=== PATIENT | male | born 1950 | race Caucasian/White ===

== ENCOUNTER 2018-05-02 13:06 | Inpatient (IN) ==
[2018-05-02] MEDS ORDERED: Haloperidol Inj 5 MG/ML Ampul IM ONE ×2 (14:40→15:03)
[2018-05-02] MEDS ORDERED: LORazepam 1 MG Tablet PO ONE (14:48)
--- NOTE | 2018-05-02 15:03 | ED ---
HPI General Chief Complaint: Psychiatric Symptoms Stated Complaint: Psych Eval Time Seen by Provider: 05/02/18 14:26 Source: patient and other (Uribe act report) Mode of arrival: ambulatory Limitations: no limitations History of Present Illness HPI Narrative: 68-year-old male presents the emergency department under Uribe act. Patient has history of chronic schizophrenia, bipolar disorder, and PTSD. According to the Uribe act report the patient is psychotic delusional agitated and is not taking his medications. He is hypertensive and diabetic as well and this noncompliance poses a danger to himself. Patient verbalized he will kill his psychiatrist because she lied to him. On my examination the patient is claiming that he is "Catarino King." When asked him if he is suicidal or homicidal he states "Catarino King is not kill anyone." He denies having any suicidal thoughts. He also states that "Catarino King does not hallucinate" when asked if he is having any auditory or visual hallucinations. He denies illicit drug use and alcohol use, stating "Catarino King does not do drugs or alcohol." Patient admits to tobacco use and states "Catarino King does smoke tobacco, and so does his father and his grandfather. "Patient denies any emergent medical complaints. He denies chest pain, shortness breath, abdominal pain, nausea, vomiting, change in urine or stool. The registered nurse who received the patient voiced concern of wounds to his feet and the patient is diabetic. Patient states he cut his right black 2 weeks ago and it got infected and he took antibiotics, but he is suing the snf for $ 10 million because they did not take care of his cut appropriately. Area of the right black has a small healed scab with some surrounding erythema and warmth to touch that could possibly could be consistent with cellulitis. I also noticed a callus to his left great toe with a small approximately 0.5 cm area of darkened tissue; there is no signs of infection and the toe is without erythema, edema, crepitance on palpation. Symptoms are moderate to severe in severity. Onset unknown. Duration most likely chronic. Possibly aggravated by not taking his medications. No known relieving factors. History of schizophrenia, PTSD, bipolar disorder. According to the medical record patient has history of diabetes, hypertension, kidney failure. Allergies to penicillin. Primary care provider is Dr. Torres. No other modifying factors or associated signs and symptoms. Related Data Home Medications Medication Instructions Recorded Confirmed aspirin [Aspir-81] 81 mg PO DAILY 04/17/18 05/02/18 aripiprazole 20 mg PO DAILY 05/02/18 05/02/18 balsalazide 750 mg PO TID 05/02/18 05/02/18 carvedilol 37.5 mg PO BID 05/02/18 05/02/18 glipizide 10 mg PO BID 05/02/18 05/02/18 insulin NPH isoph U-100 human 20 unit SUBCUT QPM 05/02/18 05/02/18 [Novolin N NPH U-100 Insulin] insulin NPH isoph U-100 human 50 unit SUBCUT QAM 05/02/18 05/02/18 [Novolin N NPH U-100 Insulin] lisinopril 20 mg PO DAILY 05/02/18 05/02/18 nifedipine 60 mg PO BID 05/02/18 05/02/18 terbinafine HCl 250 mg PO DAILY 05/02/18 05/02/18 Allergies Allergy/AdvReac Type Severity Reaction Status Date / Time Penicillins Allergy Anaphylaxis Verified 05/02/18 13:38 Review of Systems ROS: all other systems reviewed are negative [facility] Medical History Medical History Hypertension (Acute) Diabetes (Acute ~1988) Kidney failure (Acute ~2018) Surgical History Surgical History History of ankle surgery (Acute) Social History Social History Substance History: No History of Abuse Second Hand Smoke Exposure: Yes Smoking Status: Current every day smoker Tobacco Type: Cigarettes How Often Do You Have a Drink Containing Alcohol: 4 or more times a week Recent Travel in [place] within the Last 8 Weeks: No Recent Out of Country Travel within the Last 8 Weeks: No Immunization History Tetanus Immunization: Unsure Exam Narrative Exam Narrative: GENERAL: Well-nourished, well-developed male patient, in no acute distress SKIN: Warm and dry. Area of mild erythema and warmth to touch to the right black ; no fluctuance or crepitance; there is a small scabbed healed wound to the middle of the area; possibly consistent with cellulitis. Medial aspect of left great toe with callus with approximately a 0.5 cm area of darkened tissue; skin is intact; no drainage; the toe is without erythema, edema; toe is pink and warm and with good cap refill and sensory intact. I inspected both feet and in between all the toes and there are no open wounds noted. Bilateral lower extremities are supple and nontender with 2+ pedal pulses. HEAD: Atraumatic. Normocephalic. EYES: Pupils equal and round. ENT: Mucosa pink and moist. NECK: Supple. Trachea midline. CARDIOVASCULAR: Regular rate and rhythm. No murmur appreciated. RESPIRATORY: No accessory muscle use. Clear to auscultation. Breath sounds equal bilaterally. GASTROINTESTINAL: Rounded. MUSCULOSKELETAL: No obvious deformities. No clubbing. No cyanosis. No edema. NEUROLOGICAL: Awake and alert. No obvious cranial nerve deficits. Motor grossly within normal limits. Normal speech. Moves all extremities. 5/5 strength to all extremities. PSYCHIATRIC: delusional thought processes. Possible hallucinations. Patient aggravated and having spontaneous outbursts of yelling and being aggressive. Course Initial Documented Vital Signs Temperature 97.9 F 05/02/18 13:38 Pulse Rate 70 05/02/18 13:38 Respiratory Rate 20 05/02/18 13:38 Blood Pressure 154/71 H 05/02/18 13:38 Pulse Oximetry 99 05/02/18 13:38 Last Documented Vital Signs Temperature 97.4 F L 05/03/18 06:10 Pulse Rate 80 05/03/18 06:10 Respiratory Rate 17 05/03/18 06:10 Blood Pressure 127/64 05/03/18 06:10 Pulse Oximetry 98 05/03/18 06:10 Medical Decision Making [facility] Narrative Medical decision making narrative: Patient presents under a Uribe act. Physical examination and vital signs are essentially unremarkable. Patient has no medical complaints to report. Psych screen has been ordered. If the laboratory results are unremarkable, the patient will be medically cleared for psychiatric evaluation and disposition. There is concern of possible cellulitis to the right black, so I will treat the patient with Bactrim. The patient does have a callus to his left great toe with an area of darkening skin that is not open and there appears to be no signs of infection; the toe is pink and warm and with good cap refill. I ordered IM Ativan and Haldol as the patient is having intermittent episodes of yelling out. He is calm and cooperative at this time so I discontinued the IM injections and ordered Ativan by mouth. 1507: P.o. Ativan has not been administered at this time. Patient is having intermittent episodes of aggravation and yelling out loud that "someone is going to burn in hell." He walked out of his room and threw his glasses on the floor and broke them while I was standing in front of him. I discontinued Ativan p.o. and ordered Ativan IM and Haldol. Patient moved to J pod. BUN and creatinine is elevated and is consistent with past levels. Random glucose 47. Patient was eating wyatt crackers and was given Gatorade after blood draw. I called and spoke with the nurse in regards to the random glucose 47 and she has Loy rechecked the BGM; BGM recheck about 5 minutes ago 181. Medical Screen Exam Complete: Yes Emergency Medical Condition: Yes Differential Diagnosis Differential Diagnosis: Schizophrenia, bipolar disorder, hallucinations, PTSD, encounter for psychiatric assessment Lab Data Result diagrams: 05/02/18 13:53 05/02/18 13:53 Lab Results 05/02/18 05/02/18 05/02/18 Range/Units 13:53 13:53 13:53 WBC 11.0 (4.0-11.0) th/mm3 RBC 4.17 L (4.50-5.90) mil/mm3 Hgb 11.9 L (13.0-17.0) gm/dL Hct 36.3 L (39.0-51.0) % MCV 87.1 (80.0-100.0) fL MCH 28.7 (27.0-34.0) pg MCHC 32.9 (32.0-36.0) % RDW 15.3 (11.6-17.2) % Plt Count 286 (150-450) th/mm3 MPV 8.9 (7.0-11.0) fL Neut % (Auto) 73.2 H (16.0-70.0) % Lymph % (Auto) 16.1 (9.0-44.0) % [place] % (Auto) 7.3 (0.0-8.0) % Eos % (Auto) 2.9 (0.0-4.0) % Baso % (Auto) 0.5 (0.0-2.0) % Neut # (Auto) 8.0 H (1.8-7.7) th/mm3 Lymph # (Auto) 1.8 (1.0-4.8) th/mm3 [place] # (Auto) 0.8 (0.0-0.9) th/mm3 Eos # (Auto) 0.3 (0.0-0.4) th/mm3 Baso # (Auto) 0.1 (0.0-0.2) th/mm3 WBC Differential . Differential Comment Auto diff final Sodium 141 (136-145) meq/L Potassium 3.7 (3.5-5.1) meq/L Chloride 108 H (98-107) meq/L Carbon Dioxide 26.7 (21.0-32.0) meq/L Anion Gap 6 (5-15) meq/L BUN 35 H (7-18) mg/dL Creatinine 1.62 H (0.60-1.30) mg/dL Estimated GFR 42 L (>89) mL/min POC Glucose (68-110) mg/dl Random Glucose 47 L* (74-106) mg/dL Calcium 8.6 (8.5-10.1) mg/dL Magnesium 2.8 H (1.5-2.5) mg/dL Total Bilirubin 0.3 (0.2-1.0) mg/dL AST 26 (15-37) U/L ALT 26 (12-78) U/L Alkaline Phosphatase 83 (45-117) U/L Total Protein 7.7 (6.4-8.2) g/dL Albumin 3.3 L (3.4-5.0) g/dL TSH 0.501 (0.358-3.740) uIU/mL Salicylates 1.8 L (2.8-20.0) mg/dL Acetaminophen Less than 2.0 L (10.0-30.0) mcg/mL Serum Alcohol Less than 3 (0-5) mg/dL 05/02/18 05/03/18 Range/Units 16:49 05:16 WBC (4.0-11.0) th/mm3 RBC (4.50-5.90) mil/mm3 Hgb (13.0-17.0) gm/dL Hct (39.0-51.0) % MCV (80.0-100.0) fL MCH (27.0-34.0) pg MCHC (32.0-36.0) % RDW (11.6-17.2) % Plt Count (150-450) th/mm3 MPV (7.0-11.0) fL Neut % (Auto) (16.0-70.0) % Lymph % (Auto) (9.0-44.0) % [place] % (Auto) (0.0-8.0) % Eos % (Auto) (0.0-4.0) % Baso % (Auto) (0.0-2.0) % Neut # (Auto) (1.8-7.7) th/mm3 Lymph # (Auto) (1.0-4.8) th/mm3 [place] # (Auto) (0.0-0.9) th/mm3 Eos # (Auto) (0.0-0.4) th/mm3 Baso # (Auto) (0.0-0.2) th/mm3 WBC Differential Differential Comment Sodium (136-145) meq/L Potassium (3.5-5.1) meq/L Chloride (98-107) meq/L Carbon Dioxide (21.0-32.0) meq/L Anion Gap (5-15) meq/L BUN (7-18) mg/dL Creatinine (0.60-1.30) mg/dL Estimated GFR (>89) mL/min POC Glucose 181 H 98 (68-110) mg/dl Random Glucose (74-106) mg/dL Calcium (8.5-10.1) mg/dL Magnesium (1.5-2.5) mg/dL Total Bilirubin (0.2-1.0) mg/dL AST (15-37) U/L ALT (12-78) U/L Alkaline Phosphatase (45-117) U/L Total Protein (6.4-8.2) g/dL Albumin (3.4-5.0) g/dL TSH (0.358-3.740) uIU/mL Salicylates (2.8-20.0) mg/dL Acetaminophen (10.0-30.0) mcg/mL Serum Alcohol (0-5) mg/dL Discharge Plan Discharge Disposition Patient Disposition: Sign Out(ED Internal Use Only) Discharge Condition Condition: Stable Discharge Order Discharge Orders: ED Use Only Admit Order (Routine); Ordered 05/02/18 Ordered By: Aftab Joshua Discharge Details Diagnosis: Encounter for psychiatric assessment Physicians Team ED Provider: Jeff Matta ED Midlevel Provider: Amita Stewart Primary Care Provider: [facility],Physician 's Attending Provider: Mark Isidro Other Providers: Neftaly Clement ; Serafin Villarreal Status ED Status: Left Department Discharge Information Discharge Date/Time: 05/02/18 19:16
[2018-05-02 15:33] LABS: Baso # (Auto) 0.1 th/mm3 (0.0-0.2); Baso % (Auto) 0.5 % (0.0-2.0); Eos # (Auto) 0.3 th/mm3 (0.0-0.4); Eos % (Auto) 2.9 % (0.0-4.0); Hematocrit 36.3 % (39.0-51.0); Hemoglobin 11.9 gm/dL (13.0-17.0); Lymph # (Auto) 1.8 th/mm3 (1.0-4.8); Lymph % (Auto) 16.1 % (9.0-44.0); Mean Corpuscular HGB Conc 32.9 % (32.0-36.0); Mean Corpuscular Hemoglobin 28.7 pg (27.0-34.0); Mean Corpuscular Volume 87.1 fL (80.0-100.0); Mean Platelet Volume 8.9 fL (7.0-11.0); Mono # (Auto) 0.8 th/mm3 (0.0-0.9); Mono % (Auto) 7.3 % (0.0-8.0); Neut % (Auto) 73.2 % (16.0-70.0); Platelet Count 286 th/mm3 (150-450); Red Blood Count 4.17 mil/mm3 (4.50-5.90); Red Cell Distribution Width 15.3 % (11.6-17.2)
[2018-05-02] MEDS ORDERED: Bisacodyl 10 MG Supp RECTAL PRN (15:37)
[2018-05-02] MEDS ORDERED: Chlorpromazine Inj 50 MG/2 ML Ampule IM ONE (15:37)
[2018-05-02] MEDS ORDERED: Aluminum/Magnesium/Simethacone Susp 30 ML UDC PO PRN (15:37)
--- NOTE | 2018-05-02 15:42 | P.HPPSY ---
Provisional Diagnosis Admission Date: May 02, 2018 13:06 [place] I.: Schizophrenia Competence Certification of Person's Competence To Provide Express and Informed Consent I have personally examined Sourav Alvarado, a person being served at [facility] on, May 02, 2018 1542. Express and informed consent means consent voluntarily given in writing, by a competent person, after sufficient explanation and disclosure of the subject matter involved to enable the person to make a knowing and willful decision without any element of force, fraud, deceit, duress, or other form of constraint or coercion. This person is 18 years of age or older, is not now known to be incompetent to consent to treatment with a guardian advocate, and does not have a health care surrogate or proxy currently making medical treatment decisions. I have found this person to be one of the following: [] Competent to provide express and informed consent, as defined above, for voluntary admission to this facility and is competent to provide express and informed consent for treatment. He/she has the consistent capacity to make well reasoned, willful, and knowing decisions concerning his or her medical or mental health treatment. The person fully and consistently understands the purpose of the admission for examination/placement and is fully capable of personally exercising all rights [place] [x] Incompetent to provide express and informed consent to voluntary admission, and this is incompetent to provide express and informed consent to treatment. The person must be transferred to involuntary status and a petition for a guardian advocate filed with the Circuit Court. [] Refusing to provide express and informed consent to voluntary admission but is competent to provide express and informed consent for treatment. The person must be discharged or transferred to involuntary status. Form shall be completed within 24 hours of a person's arrival at the receiving facility and filed in the clinical record of each person: 1. Admitted on a voluntary basis 2. Permitted to provide express and informed consent to his/her own treatment 3. Allowed to transfer from involuntary to voluntary status 4. Prior to permitting a person to consent to his or her own treatment after having been previously found incompetent to consent to treatment. History of Present Illness Capacity: Has capacity History of Present Illness: The patient is a 68-year-old [place] man, domiciled in [place], single, supported by Social Security, with a psychiatric history of schizophrenia, PTSD , multiple psychiatric hospitalizations, he denies previous suicidal attempts, he denies been taking psychotropics, history of violence, incarcerations, sex offender, medical history diabetes, hypertension, who presents the emergency department under Uribe act. According to the Uribe act report the patient is psychotic delusional agitated and is not taking his medications. He is hypertensive and diabetic as well and this noncompliance poses a danger to himself. Patient verbalized he will kill his psychiatrist because she lied to him. On my psychiatric evaluation today the patient presents quite agitated, verbally hostile, refusing to cooperate. Patient does not engage in a conversation, continues to be threatening verbally. Patient is claiming that he is "Catarino King." When asked him if he is suicidal or homicidal he states "Catarino King is not kill anyone." He denies having any suicidal thoughts. He also states that "Catarino King does not hallucinate" when asked if he is having any auditory or visual hallucinations. The patient is start making accusation towards the staff, telling me that "you are Sourav Ugarte and you know exactly why I am here MF!!". The patient has some point become physically aggressive, he had to be manually restrained, medicated with Haldol 5 mg and Ativan 2 mg. He is secluded in the J pod, about 25 minutes later the patient continues to be coursing the staff, voicing profanities, threatening the staff and other patients and we had remedicated him Thorazine 100 mg IM to help him to calm down. PPHx: with a psychiatric history of schizophrenia, PTSD, multiple psychiatric hospitalizations, he denies previous suicidal attempts, he denies been taking psychotropics, history of violence, incarcerations, sex offender PMHx: Hypertension, diabetes Substance Hx: He denies the use of illegal drugs or alcohol Family Hx: No family psychiatric Social Hx: 68-year-old [place] man, born and raised in [place], he lives with his mother in [place], single, supported by Social Security, history of incarceration for sexual offense. Review of Systems All other systems reviewed negative except as stated in HPI Psychiatric: Reports behavioral changes, Reports irritability, Reports mood swings, Reports paranoia, Reports thoughts of hurting/killing others PMFSH - History History Provided By: Patient - Medical History Medical History: Medical History (Last Reviewed 05/02/18 @ 15:29 by RADHA Aly) Hypertension Diabetes Onset Date: ~1988 Kidney failure Onset Date: ~2018 - Surgical History Surgical History: Surgical History (Last Updated 05/02/18 @ 13:40 by Yessi Coffey) History of ankle surgery - Tobacco History Second Hand Smoke Exposure: Yes Tobacco Use In Past 30 Days: Yes (2PPD) Smoking Status: Current every day smoker Tobacco Type: Cigarettes - Alcohol History How Often Do You Have a Drink Containing Alcohol: 4 or more times a week - Substance Use History Substance History: No History of Abuse - Travel History Recent Travel in the [place] Within the Last 8 Weeks: No Recent Travel Out of the Country Within the Last 8 Weeks: No - Immunization History Tetanus Immunization: Unsure Medications and Allergies Active Medications: Active Medications Al Hydrox/Mg Hydrox/Simethicone (Mag-Al Plus Susp Liq) 30 ml PO Q6H PRN PRN Reason: DYSPEPSIA Al Hydroxide/Mg Hydroxide (Milk Of Magnesia Liq) 30 ml PO Q12H PRN PRN Reason: Mild Constipation Bisacodyl (Dulcolax Supp) 10 mg RECTAL DAILY PRN PRN Reason: SEVERE CONSITIPATION Chlorpromazine HCl (Thorazine Inj) 100 mg IM ONCE ONE Stop: 05/02/18 15:38 Lactulose (Lactulose Liq) 30 ml PO DAILY PRN PRN Reason: SEVERE CONSITIPATION Senna/Docusate Sodium (Ani-Colace) 1 tab PO BID NOLVIA Sennosides (Senokot) 17.2 mg PO Q12H PRN PRN Reason: Moderate Constipation Trimethoprim/Sulfamethoxazole (Bactrim Ds) 1 tab PO Q12HR [facility] Allergies Allergy/AdvReac Type Severity Reaction Status Date / Time Penicillins Allergy Anaphylaxis Verified 05/02/18 13:38 Home Medications Medication Instructions Recorded Confirmed Type aspirin [Aspir-81] 81 mg PO DAILY 04/17/18 05/02/18 History aripiprazole 20 mg PO DAILY 05/02/18 05/02/18 History balsalazide 750 mg PO TID 05/02/18 05/02/18 History carvedilol 37.5 mg PO BID 05/02/18 05/02/18 History glipizide 10 mg PO BID 05/02/18 05/02/18 History insulin NPH isoph U-100 human 20 unit SUBCUT QPM 05/02/18 05/02/18 History [Novolin N NPH U-100 Insulin] insulin NPH isoph U-100 human 50 unit SUBCUT QAM 05/02/18 05/02/18 History [Novolin N NPH U-100 Insulin] lisinopril 20 mg PO DAILY 05/02/18 05/02/18 History nifedipine 60 mg PO BID 05/02/18 05/02/18 History terbinafine HCl 250 mg PO DAILY 05/02/18 05/02/18 History Results - Labs CBC & Chem 7: 05/02/18 13:53 05/02/18 13:53 Labs: Laboratory Results - last 24 hr 05/02/18 13:53 WBC 11.0 RBC 4.17 L Hgb 11.9 L Hct 36.3 L MCV 87.1 MCH 28.7 MCHC 32.9 RDW 15.3 Plt Count 286 MPV 8.9 Neut % (Auto) 73.2 H Lymph % (Auto) 16.1 [place] % (Auto) 7.3 Eos % (Auto) 2.9 Baso % (Auto) 0.5 Neut # (Auto) 8.0 H Lymph # (Auto) 1.8 [place] # (Auto) 0.8 Eos # (Auto) 0.3 Baso # (Auto) 0.1 WBC Differential . Differential Comment Auto diff final Exam Vital signs: Vital Signs 05/02/18 13:38 Temperature 97.9 F Pulse Rate 70 Respiratory Rate 20 Blood Pressure 154/71 H Pulse Oximetry 99 Intake & Output 05/01/18 05/02/18 05/02/18 18:59 06:59 18:59 Weight 90.718 kg Narrative: Agitated, restless, - Constitutional severe distress - Routine HEENT Exam Head: Present: normocephalic, atraumatic Eye: Present: EOMI, PERRL ENT: Present: mucous membranes moist Mental Status Examination Appearance: Dirty, Disheveled Consciousness: Alert Orientation: x4 Motor Activity: Normal gait Speech: Unremarkable Language: Adequate Fund of Knowledge: Adequate Attention and Concentration: Adequate Memory: Unremarkable Mood: Angry, Irritable Affect: Irritable Thought Process & Associations: Disorganized, Tangential Thought Content: Bizarre thinking, Hallucinations, Preoccupations, Delusional Hallucination Type: None Delusion Type: Bizarre, Paranoid Suicidal Ideation: No Suicidal Plan: No Suicidal Intention: No Homicidal Ideation: No Homicidal Plan: No Homicidal Intention: No Insight: Poor Judgment: Poor Assessment and Plan - Assessment (1) Schizophrenia Code(s): F20.9 - Schizophrenia, unspecified Status: Acute - Plan Plan: On my psychiatric evaluation today the patient presents agitated, verbally and physically aggressive, very difficult to redirect, the patient is very disorganized, acutely psychotic, very paranoid, making accusations toward staff and other patients. Patient does not follow verbal redirections. He has a psychiatric history of schizophrenia, violence, noncompliant with medications. Given his level of agitation and aggressiveness and psychosis, the patient had to be medicated with Haldol 5 mg IM, Ativan 2 mg IM and finally with Thorazine 100 mg IM in order to calm him down. Patient will be admitted to psychiatry for stabilization and safety. Collateral information is crucial to complete psychiatric assessment. I am starting Haldol 5 mg twice daily, Cogentin 1 mg twice daily for psychosis. Patient should be on assault precautions. Transfer to 2700 unit. Justification for Continued Inpatient Stay: To be admitted in psychiatry
[2018-05-02 16:42] LABS: Alanine Aminotransferase 26 U/L (12-78); Albumin 3.3 g/dL (3.4-5.0); Alkaline Phosphatase 83 U/L (45-117); Anion Gap 6 meq/L (5-15); Aspartate Aminotransferase 26 U/L (15-37); Blood Urea Nitrogen 35 mg/dL (7-18); Calcium 8.6 mg/dL (8.5-10.1); Carbon Dioxide 26.7 meq/L (21.0-32.0); Chloride 108 meq/L (98-107); Glomerular Filtration Rate 42 mL/min (>89); Magnesium 2.8 mg/dL (1.5-2.5); Potassium 3.7 meq/L (3.5-5.1); Sodium 141 meq/L (136-145); Thyroid Stimulating Hormone 0.501 uIU/mL (0.358-3.740); Total Protein 7.7 g/dL (6.4-8.2)
[2018-05-02 16:46] LABS: Glucose,Random 47 mg/dL (74-106)
[2018-05-02] MEDS: Senna/Docusate Sodium 8.6/50 MG Tablet PO SCH (21:00)
[2018-05-03] MEDS ORDERED: Haloperidol Inj 5 MG/ML Ampul IM SCH (06:00)
[2018-05-03] MEDS ORDERED: Haloperidol Inj 5 MG/ML Ampul ONE ×2 (06:28→16:19)
[2018-05-03] MEDS: Senna/Docusate Sodium 8.6/50 MG Tablet PO SCH ×2 (12:26→22:32)
--- NOTE | 2018-05-03 15:16 | P.PNPSY ---
Subjective Remarks: Patient was seen and case discussed with nursing. Patient is a very sexually inappropriate and intrusive with the female nurses and the patient is here. He remains acutely psychotic and says he is going to fly his airplane from [place] to the and will refuel in the air. He appears carefree and childlike. Responding to internal stimuli Review of Systems All other systems reviewed negative except as stated in HPI Mental Status Examination Appearance: Dirty, Disheveled Consciousness: Alert Orientation: x4 Motor Activity: Normal gait Speech: Unremarkable Language: Adequate Fund of Knowledge: Adequate Attention and Concentration: Adequate Memory: Unremarkable Mood: Angry, Irritable Affect: Labile Thought Process & Associations: Disorganized, Tangential Thought Content: Bizarre thinking, Hallucinations, Preoccupations, Delusional Hallucination Type: None Delusion Type: Bizarre, Paranoid Suicidal Ideation: No Suicidal Plan: No Suicidal Intention: No Homicidal Ideation: No Homicidal Plan: No Homicidal Intention: No Insight: Poor Judgment: Poor Assessment and Plan - Assessment (1) Schizophrenia Code(s): F20.9 - Schizophrenia, unspecified Status: Acute - Plan Plan: Given his behavior and 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
--- NOTE | 2018-05-03 17:02 | P.CONIM ---
History of Present Illness Primary Care Provider: [facility] History of Present Illness: 68-year-old male with history of schizophrenia who has a somewhat spotty history due to his current psychotic state. Been consulted regarding his labile blood sugars, patient presented to the hospital with a blood sugar of 48 and then had a sugar as high as 181 today. The hypoglycemia on presentation to the ER patient reports was due to the fact that he was going on a fast, copying his Lord Catarino King who fasted for 40 days, he was intending on fasting for 100. He has a history of diabetes, fortunately was not taking glipizide. In addition to fasting he was walking 1000 miles, though the exageration of his numbers in general are questionable. Review of Systems ROS Unobtainable: unobtainable due to mental condition [facility] Medical History Medical History Hypertension (Acute) Diabetes (Acute ~1988) Kidney failure (Acute ~2018) Surgical History Surgical History History of ankle surgery (Acute) Social History Social History Substance History: No History of Abuse Second Hand Smoke Exposure: Yes Smoking Status: Current every day smoker Tobacco Type: Cigarettes How Often Do You Have a Drink Containing Alcohol: 4 or more times a week Recent Travel in [facility] within the Last 8 Weeks: No Recent Out of Country Travel within the Last 8 Weeks: No Immunization History Tetanus Immunization: Unsure Medications and Allergies Allergies Allergy/AdvReac Type Severity Reaction Status Date / Time Penicillins Allergy Anaphylaxis Verified 05/02/18 13:38 Home Medications Medication Instructions Recorded Confirmed Type aspirin [Aspir-81] 81 mg PO DAILY 04/17/18 05/02/18 History aripiprazole 20 mg PO DAILY 05/02/18 05/02/18 History balsalazide 750 mg PO TID 05/02/18 05/02/18 History carvedilol 37.5 mg PO BID 05/02/18 05/02/18 History glipizide 10 mg PO BID 05/02/18 05/02/18 History insulin NPH isoph U-100 human 20 unit SUBCUT QPM 05/02/18 05/02/18 History [Novolin N NPH U-100 Insulin] insulin NPH isoph U-100 human 50 unit SUBCUT QAM 05/02/18 05/02/18 History [Novolin N NPH U-100 Insulin] lisinopril 20 mg PO DAILY 05/02/18 05/02/18 History nifedipine 60 mg PO BID 05/02/18 05/02/18 History terbinafine HCl 250 mg PO DAILY 05/02/18 05/02/18 History Active Medications: Active Medications Al Hydrox/Mg Hydrox/Simethicone (Mag-Al Plus Susp Liq) 30 ml PO Q6H PRN PRN Reason: DYSPEPSIA Al Hydroxide/Mg Hydroxide (Milk Of Magnesia Liq) 30 ml PO Q12H PRN PRN Reason: Mild Constipation Bisacodyl (Dulcolax Supp) 10 mg RECTAL DAILY PRN PRN Reason: SEVERE CONSITIPATION Lactulose (Lactulose Liq) 30 ml PO DAILY PRN PRN Reason: SEVERE CONSITIPATION Senna/Docusate Sodium (Ani-Colace) 1 tab PO BID [facility] Last Admin: 05/03/18 12:26 Dose: 1 tab Sennosides (Senokot) 17.2 mg PO Q12H PRN PRN Reason: Moderate Constipation Trimethoprim/Sulfamethoxazole (Bactrim Ds) 1 tab PO Q12HR [facility] Last Admin: 05/03/18 12:26 Dose: 1 tab Physical Exam Vital signs: Vital Signs 05/02/18 18:57 05/03/18 06:10 Temperature 97.4 F L Pulse Rate 79 80 Respiratory Rate 18 17 Blood Pressure 157/73 H 127/64 Pulse Oximetry 98 Intake & Output 05/02/18 05/03/18 05/03/18 18:59 06:59 18:59 Weight 90.718 kg 90.7 kg Other: Weight On Admission 90.7 kg Narrative: GENERAL: AAOx1, no acute distress, adequate nutrition SKIN: Warm and dry, no rashes. HEAD: Atraumatic. Normocephalic. EYES: Pupils equal, round, reactive to light. No scleral icterus. No injection or drainage. ENT: No nasal bleeding or discharge. Moist mucous membranes. Nonerythematous oropharynx. NECK: Trachea midline. No JVD. Thyroid size within normal limits. CARDIOVASCULAR: Regular rate and rhythm. RESPIRATORY: No congestion, lungs are clear GASTROINTESTINAL: Abdomen soft, non-tender, nondistended MUSCULOSKELETAL: Extremities without clubbing or cyanosis. No obvious deformities. No edema. NEUROLOGICAL: Awake and alert. No obvious cranial nerve deficits. Motor grossly within normal limits. No focal deficits. Five out of 5 muscle strength in the arms and legs. Normal speech. PSYCHIATRIC: Tangential psychosis, delusions of grandeur Results Labs CBC & Chem 7: 05/02/18 13:53 05/02/18 13:53 Assessment and Plan (1) Schizophrenia: Code(s): F20.9 - Schizophrenia, unspecified Status: Acute Plan Labile blood sugars Patient had hypoglycemia on admission due to fasting combined with walking long distances After he began to eat again his blood sugar went hyperglycemic, up to 181 Blood sugar then dropped to 98, which is a normal blood sugar At this point the larger threat is hypoglycemia, continue with regular Accu- Cheks for monitoring Okay to tolerate hyperglycemia into the 200s short-term If hyperglycemia persists, add metformin p.o. If metformin p.o. is unable to control hyperglycemia, then it had insulin sliding scale Psychosis Patient is admitted to psychiatry with psychotic break, delusions of grandeur Ongoing care per psychiatry Disposition We will continue to follow this patient monitor blood sugars alongside psychiatry. _ (1) Schizophrenia Qualifiers: Schizophrenia type:
[2018-05-03] MEDS ORDERED: Haloperidol Inj 5 MG/ML Ampul IM ONE (17:15)
[2018-05-04] MEDS: Senna/Docusate Sodium 8.6/50 MG Tablet PO SCH ×2 (08:31→20:08)
[2018-05-04 11:23] LABS: Calcium 8.4 mg/dL (8.5-10.1); Chol/HDL Ratio 3.72 Ratio; Potassium 4.5 meq/L (3.5-5.1)
[2018-05-04] MEDS ORDERED: Dextrose 50% in Water 50 ML Vial IV.PUSH PRN (11:45)
[2018-05-04 12:14] LABS: Hemoglobin A1c 8.9 % (4.3-6.0)
[2018-05-04] MEDS: Insulin NovoLOG Aspart Correctional Sugar Inj SQ SCH ×3 (12:14→20:10)
--- NOTE | 2018-05-04 14:54 | P.PNIM ---
Subjective Interval history: Follow-up for hypoglycemia. Patient is seen with sitter at bedside. Patient reports polyuria, but denies dysuria. No fevers or chills. Denies any chest pain or shortness of breath. Discussed with RN, blood sugar significantly elevated earlier today, improving with insulin. Patient reports he takes insulin twice a day at home. He is tolerating oral intake. RN reports patient did eat breakfast and lunch today. Physical Exam Narrative: GENERAL: Well-nourished, well-developed patient in NAD. Standing at bedside with no pants on. Sitter present. SKIN: Warm and dry. No rash. HEENT: Normocephalic. Atraumatic. Pupils equal and round. Mucous membranes pink and moist. CARDIOVASCULAR: Regular rate and rhythm. No murmur appreciated. RESPIRATORY: No accessory muscle use. Clear to auscultation. Breath sounds equal bilaterally. GASTROINTESTINAL: Abdomen soft, non-tender, nondistended. Normoactive bowel sounds x4. MUSCULOSKELETAL: No obvious deformities. Extremities without clubbing, cyanosis , or edema. NEUROLOGICAL: Awake and alert. No obvious cranial nerve deficits. Motor grossly within normal limits. Moving all extremities spontaneously. Normal speech. PSYCHIATRIC: Tangential speech Results Labs CBC & Chem 7: 05/02/18 13:53 05/04/18 10:25 Assessment and Plan (1) Schizophrenia: Code(s): F20.9 - Schizophrenia, unspecified Status: Acute Plan 68-year-old male history of HTN, DM, CKD, schizophrenia, admitted to inpatient psychiatry. Hospitalist consulted for medical management of hypoglycemia. Psychosis/Schizophrenia: acute -continue management per psychiatry Diabetes mellitus: With hypoglycemia, now hyperglycemia. Patient likely initially hypoglycemic due to fasting while acutely psychotic. Now patient is eating, and blood sugar 400. -holding patient's glipizide for now -Monitor Accu-Cheks and started on low-dose SSI for now -Unable to start metformin secondary to renal function -Difficult to control as patient intermittently fasting -Will monitor BG over the next 24 hours to see how much insulin the patient is requiring -If BG still uncontrolled and patient eating, consider restarting his long- acting insulin NPH 50u in am, 20u in pm Hypertension: chronic -continue patient's coreg and nifedipine with hold parameters -hold patient's lisinopril due to renal function -Monitor BP, adjust antihypertensives as needed CKD, stage III: chronic -avoid nephrotoxins -holding patient's lisinopril -Monitor BMP DVT Prophylaxis: patient is ambulatory Discharge Planning: Will continue to monitor blood glucose and adjust insulin as needed. Progress Note: Quality VTE Deep Vein Thrombosis/Pulmonary Embolism Present on Admission: No _ (1) Schizophrenia Qualifiers: Schizophrenia type:
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
[2018-05-04] MEDS: Carvedilol 12.5 MG Tablet PO SCH (20:08)
[2018-05-05] MEDS: Insulin NovoLOG Aspart Correctional Sugar Inj SQ SCH ×4 (08:35→20:08)
[2018-05-05] MEDS: Carvedilol 12.5 MG Tablet PO SCH ×2 (08:38→20:53)
[2018-05-05] MEDS: Senna/Docusate Sodium 8.6/50 MG Tablet PO SCH ×2 (08:40→20:53)
[2018-05-05] MEDS: Haloperidol 5 MG Tablet PO SCH ×2 (11:53→20:53)
[2018-05-05] MEDS: ARIPiprazole 10 MG Tablet PO SCH (11:53)
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
--- NOTE | 2018-05-05 15:00 | P.PNPSY ---
Subjective Chief Complaint: "I will be the one to kill Lucifer" Remarks: Patient seen for follow-up, chart reviewed, patient discussed with nursing staff ; we reviewed the patient's mood, thoughts, and behaviors from overnight and this morning. Nurse reports that patient has been cooperative with care but he remains intrusive with peers and he was described as hyperreligious and hypersexual and disruptive during group therapy. Patient continues on one-to- one observation due to his intrusive and hypersexual behaviors. The patient was evaluated for the purpose of the second opinion as well as this provider assuming responsibility as his attending. The patient is well-known from previous admission. Patient has a history of being treated for bipolar disorder PTSD with [facility]. Patient is able to recall his treatment and diagnosis and he expressed a sincere motivation to get restarted on his medications. He reports that he did follow-up as scheduled after his previous discharge and he was restarted on his medications but it is unclear whether or not he adhered. He reports that his outpatient psychiatrist had him Rony acted after his brother expressed concern that he was at risk of harming himself or his mother. Patient has adamantly in denial that he had any thoughts of harming himself or his mother but he does perseverate on the idea that "Lucifer is among us and I am going to kill him." Patient also said that his brother is a ninja but he is bad and wants to kill Catarino King. Patient also said that he happens to own the fast his car in the world and he will be able to catch Lucifer. Mental Status Examination Appearance: Appropriate Consciousness: Alert Orientation: x4 Motor Activity: Normal gait Speech: Unremarkable Language: Adequate Fund of Knowledge: Adequate Attention and Concentration: Adequate Memory: Unremarkable Mood: Irritable Affect: Labile Thought Process & Associations: Disorganized, Tangential Thought Content: Bizarre thinking, Preoccupations (Hyperreligious), Delusional Hallucination Type: None Delusion Type: Bizarre, Paranoid Suicidal Ideation: No Suicidal Plan: No Suicidal Intention: No Homicidal Ideation: No Homicidal Plan: No Homicidal Intention: No Insight: Poor Judgment: Poor Assessment and Plan - Assessment (1) Schizoaffective disorder, bipolar type Code(s): F25.0 - Schizoaffective disorder, bipolar type Status: Acute (2) PTSD (post-traumatic stress disorder) Code(s): F43.10 - Post-traumatic stress disorder, unspecified Status: Chronic - Plan Plan: May 05, 2018: Unsatisfactory response to treatment, the patient continues to demonstrate symptoms of shawna and psychosis but he has insight into his diagnosis and he is motivated to restart his outpatient treatments. Continue inpatient psychiatric treatment and stabilization, involuntary status but with capacity to make medical decisions. The second opinion was documented and left on chart. Start Haldol 10 mg twice a day for treatment of psychosis. Restart Abilify 10 mg/day for treatment of bipolar shawna. Continue hydroxyzine 50 mg every 6 hours as needed for anxiety. Discharge planning: The patient is followed by the [facility] and had been staying with his mother but this will need to be clarified as part of the discharge planning. Justification for Continued Inpatient Stay: Patient remains an elevated risk for self-harm by self neglect and a risk towards other by acting out on his paranoia and will require further inpatient stabilization and preparation of a safe discharge plan. Moving patient to a less restrictive environment at this time may result in decompensation.
--- NOTE | 2018-05-05 18:47 | P.PNIM ---
Subjective Interval history: Follow up for uncontrolled diabetes. The patient is seen with sitter. He is difficult to redirect with conversation. Blood glucose has been persistently elevated. Patient is tolerating oral intake. Physical Exam Vital signs: Vital Signs 05/05/18 06:00 05/05/18 15:16 Temperature 98.3 F 98.8 F Pulse Rate 76 63 Respiratory Rate 18 18 Blood Pressure 149/66 H 113/54 L Pulse Oximetry 97 96 Intake & Output 05/04/18 05/05/18 05/05/18 18:59 06:59 18:59 Weight 96.2 kg Other: Date of Last Bowel Movement 05/04/18 Narrative: GENERAL: Well-nourished, well-developed elderly male patient in NAD. Standing at bedside. Sitter present. SKIN: Warm and dry. No rash. HEENT: Normocephalic. Atraumatic. Pupils equal and round. Mucous membranes pink and moist. CARDIOVASCULAR: Did not auscultate. RESPIRATORY: No accessory muscle use. Did not auscultate today. GASTROINTESTINAL: Abdomen soft, non-tender, nondistended. MUSCULOSKELETAL: No obvious deformities. Extremities without clubbing, cyanosis , or edema. NEUROLOGICAL: Awake and alert. No obvious cranial nerve deficits. Motor grossly within normal limits. Moving all extremities spontaneously. Normal speech. PSYCHIATRIC: Tangential speech, difficult to redirect with conversation Results Labs CBC & Chem 7: 05/02/18 13:53 05/04/18 10:25 Imaging Imaging: Impressions Hand X-Ray 05/05/18 00:00 CONCLUSION: Nondisplaced fracture of the proximal fifth metacarpal. Assessment and Plan (1) Schizoaffective disorder, bipolar type: Code(s): F25.0 - Schizoaffective disorder, bipolar type Status: Acute (2) PTSD (post-traumatic stress disorder): Code(s): F43.10 - Post-traumatic stress disorder, unspecified Status: Chronic Plan 68-year-old male history of HTN, DM, CKD, schizophrenia, admitted to inpatient psychiatry. Hospitalist consulted for medical management of hypoglycemia. Psychosis/Schizophrenia: acute -continue management per psychiatry Diabetes mellitus: Initially with hypoglycemia, now hyperglycemia. Patient likely initially hypoglycemic due to fasting while acutely psychotic. Now patient is eating, and blood sugar 400. -holding patient's glipizide for now -Monitor Accu-Cheks and started on low-dose SSI for now -Unable to start metformin secondary to renal function -Difficult to control as patient intermittently fasting -Will monitor BG over the next 24 hours to see how much insulin the patient is requiring -If BG still uncontrolled and patient eating, consider restarting his long- acting insulin NPH 50u in am, 20u in pm -05/05 patient's BG persistently elevated, patient tolerating oral intake but not eating all meals, will start on low dose levemir 5u sq hs for now and titrate up as needed Hypertension: chronic -continue patient's coreg and nifedipine with hold parameters -hold patient's lisinopril due to renal function -Monitor BP, adjust antihypertensives as needed CKD, stage III: chronic -avoid nephrotoxins -holding patient's lisinopril -Monitor BMP Right Hand Fracture: hand xray today 05/05 showed right fifth metacarpal fracture. -Ordered splint to be placed by [employer] -ortho consult. DVT Prophylaxis: patient is ambulatory Discharge Planning: Will continue to monitor blood glucose and adjust insulin as needed. Progress Note: Quality VTE Deep Vein Thrombosis/Pulmonary Embolism Present on Admission: No
[2018-05-05] MEDS ORDERED: Insulin Detemir Inj 1,000 UNIT/10 ML Vial SQ SCH (21:00)
[2018-05-06] MEDS: Insulin NovoLOG Aspart Correctional Sugar Inj SQ SCH ×5 (08:18→21:46)
[2018-05-06] MEDS: ARIPiprazole 10 MG Tablet PO SCH (08:19)
[2018-05-06] MEDS: Haloperidol 5 MG Tablet PO SCH ×2 (08:19→21:44)
[2018-05-06] MEDS: Carvedilol 12.5 MG Tablet PO SCH ×2 (08:19→21:52)
[2018-05-06] MEDS: Senna/Docusate Sodium 8.6/50 MG Tablet PO SCH ×2 (08:19→21:44)
--- NOTE | 2018-05-06 12:32 | P.CONOP ---
[facility] Orthopedics Consult Note - [facility] Consult date: 05/06/18 Consult reason: fracture Chief complaint: Schizophrenia Narrative: 68-year-old [place] man, domiciled in [place], single, supported by Social Security, with a psychiatric history of schizophrenia, PTSD, multiple psychiatric hospitalizations, he denies previous suicidal attempts, he denies been taking psychotropics, history of violence, incarcerations, sex offender, medical history diabetes, hypertension, who presents the emergency department under Uribe act. According to the [place]ribe act report the patient is psychotic delusional agitated and is not taking his medications. He is hypertensive and diabetic as well and this noncompliance poses a danger to himself. Patient verbalized he will kill his psychiatrist because she lied to him. Patient states a couple days prior to presentation he had a slip and fall in the hotel bathroom and landed on his right hand. He complains of mild pain over the fifth metacarpal. He denies of pain throughout the rest of his hand and digits. He denies any numbness or tingling. Review of Systems Denies fevers, chills, nausea, vomiting. Denies chest pain, cough, shortness of breath. Denies abdominal pain or change in urination. Denies back pain, weakness, numbness or tingling. Denies dizziness, blurry vision or throat pain. Reports right hand pain PMFSH - History History Provided By: Patient - Medical History Medical History: Medical History (Last Reviewed 05/03/18 @ 17:01 by Serafin Villarreal MD) Hypertension Diabetes Onset Date: ~1988 Kidney failure Onset Date: ~2018 - Surgical History Surgical History: Surgical History (Last Reviewed 05/03/18 @ 17:01 by Serafin Villarreal MD) History of ankle surgery - Tobacco History Second Hand Smoke Exposure: Yes Tobacco Use In Past 30 Days: Yes (2PPD) Smoking Status: Current every day smoker Tobacco Type: Cigarettes - Alcohol History How Often Do You Have a Drink Containing Alcohol: 4 or more times a week - Substance Use History Substance History: No History of Abuse - Travel History Recent Travel in the [place] Within the Last 8 Weeks: No Recent Travel Out of the Country Within the Last 8 Weeks: No - Immunization History Tetanus Immunization: Unsure Medications and Allergies Active Medications: Active Medications Al Hydrox/Mg Hydrox/Simethicone (Mag-Al Plus Susp Liq) 30 ml PO Q6H PRN PRN Reason: DYSPEPSIA Al Hydroxide/Mg Hydroxide (Milk Of Magnesia Liq) 30 ml PO Q12H PRN PRN Reason: Mild Constipation Aripiprazole (Abilify) 10 mg PO DAILY [facility] Last Admin: 05/06/18 08:19 Dose: 10 mg Aspirin (Ecotrin) 81 mg PO DAILY [facility] Last Admin: 05/06/18 08:18 Dose: Not Given Bisacodyl (Dulcolax Supp) 10 mg RECTAL DAILY PRN PRN Reason: SEVERE CONSITIPATION Carvedilol (Coreg) 25 mg PO BID [facility] Last Admin: 05/06/18 08:19 Dose: 25 mg Dextrose (D50w Vial) 50 ml IV.PUSH UNSCH PRN PRN Reason: PER HYPOGLYCEMIA PROTOCOL Glucagon (Glucagon Inj) 1 mg OTHER PRN PRN PRN Reason: for Hypoglycemia Protocol Haloperidol (Haldol) 5 mg PO BID [facility] Last Admin: 05/06/18 08:19 Dose: 5 mg Insulin Aspart (Novolog Insulin Correctional Sugar Inj) 0 unit SQ [facility]; Protocol Last Admin: 05/06/18 11:26 Dose: 5 unit Insulin Detemir (Levemir Inj) 5 unit SQ [facility] Last Admin: 05/05/18 20:55 Dose: 5 unit Lactulose (Lactulose Liq) 30 ml PO DAILY PRN PRN Reason: SEVERE CONSITIPATION Nifedipine (Procardia Xl) 60 mg PO BID [facility] Last Admin: 05/06/18 08:19 Dose: 60 mg Senna/Docusate Sodium (Ani-Colace) 1 tab PO BID [facility] Last Admin: 05/06/18 08:19 Dose: 1 tab Sennosides (Senokot) 17.2 mg PO Q12H PRN PRN Reason: Moderate Constipation Temazepam (Restoril) 30 mg PO HS PRN PRN Reason: INSOMNIA Trimethoprim/Sulfamethoxazole (Bactrim Ds) 1 tab PO Q12HR [facility] Last Admin: 05/06/18 08:19 Dose: 1 tab Allergies Allergy/AdvReac Type Severity Reaction Status Date / Time Penicillins Allergy Anaphylaxis Verified 05/02/18 13:38 Home Medications Medication Instructions Recorded Confirmed Type aspirin [Aspir-81] 81 mg PO DAILY 04/17/18 05/02/18 History aripiprazole 20 mg PO DAILY 05/02/18 05/02/18 History balsalazide 750 mg PO TID 05/02/18 05/02/18 History carvedilol 37.5 mg PO BID 05/02/18 05/02/18 History glipizide 10 mg PO BID 05/02/18 05/02/18 History insulin NPH isoph U-100 human 20 unit SUBCUT QPM 05/02/18 05/02/18 History [Novolin N NPH U-100 Insulin] insulin NPH isoph U-100 human 50 unit SUBCUT QAM 05/02/18 05/02/18 History [Novolin N NPH U-100 Insulin] lisinopril 20 mg PO DAILY 05/02/18 05/02/18 History nifedipine 60 mg PO BID 05/02/18 05/02/18 History terbinafine HCl 250 mg PO DAILY 05/02/18 05/02/18 History Exam Vital signs: Vital Signs 05/05/18 15:16 05/06/18 05:51 Temperature 98.8 F 99.1 F Pulse Rate 63 66 Respiratory Rate 18 16 Blood Pressure 113/54 L 124/58 L Pulse Oximetry 96 96 Intake & Output 05/05/18 05/06/18 05/06/18 18:59 06:59 18:59 Other: Date of Last Bowel Movement 05/04/18 05/05/18 Narrative: Awake, alert, no acute distress Normocephalic Pupils equal No JVD Moist mucous membranes Nonlabored respirations Soft nontender abdomen Regular rate Right upper extremity: Very mild swelling over the fifth metacarpal. Mild tenderness over the base to middle of the metacarpal. No significant deformity. No skin wounds. Patient demonstrates full finger flexion and extension. Full active range of motion and strength throughout. Sensation intact. Brisk cap refill. Left upper extremity:No tenderness to palpation or visible deformities. Full active range of motion and strength throughout. Sensation intact. Brisk cap refill. Right lower extremity: No tenderness to palpation or visible deformities. Full active range of motion and strength throughout. Sensation intact. Brisk cap refill. Left lower extremity:No tenderness to palpation or visible deformities. Full active range of motion and strength throughout. Sensation intact. Brisk cap refill. No rash Appears with relatively normal affect Results - Labs Result Diagrams: 05/02/18 13:53 05/04/18 10:25 Labs: Laboratory Results - last 24 hr 05/05/18 05/05/18 05/06/18 16:27 20:05 07:15 POC Glucose 165 H 258 H 220 H 05/06/18 11:07 POC Glucose 275 H - Diagnostic results Imaging: Impressions Hand X-Ray 05/05/18 00:00 CONCLUSION: Nondisplaced fracture of the proximal fifth metacarpal. Assessment and Plan - Assessment and Plan 68-year-old gentleman with multiple medical problems including significant psychiatric history currently under [place] act and found to have a closed fifth metacarpal fracture, minimally displaced. Radiographs reviewed by myself and with the patient. Given he has a metadiaphyseal fifth metacarpal fracture that is minimally to nondisplaced, I would recommend at least an initial attempt at conservative treatment. Patient will be placed into a short arm ulnar gutter splint. Patient should be nonweightbearing to this right upper extremity. I did discuss with the patient that these fractures take at least 4-6 weeks to start to heal. Patient may follow-up in 2 weeks upon discharge.
--- NOTE | 2018-05-06 12:34 | P.PNPSY ---
Subjective Chief Complaint: "I will be the one to kill Lucifer" Remarks: Patient seen for follow-up, chart reviewed, patient discussed with nursing staff ; we reviewed the patient's mood, thoughts, and behaviors from overnight and this morning. Nurse reports the patient did not sleep well overnight and only got about 3 hours of rest. He did stay in his room until 0 600/unit rules and then he came out and sat in the day room. Staff reports that he has been less intrusive or verbally aggressive today. Staff reports no negative behaviors since yesterday afternoon during group. Patient cooperated with the restart of his psychotropic medications. Patient was seen sitting in the day room talking to staff. His speech is nonpressured and his thoughts less disorganized. He was slightly tangential as he went from talking about his current condition to giving the provider instructions on a healthy diet and lifestyle. Patient denies any current auditory or visual hallucinations. He expressed understanding of his current treatment plan and a willingness to continue his psychotropics. He denies any thoughts of harming self or others at this time. Mental Status Examination Appearance: Appropriate Consciousness: Alert Orientation: x4 Motor Activity: Normal gait Speech: Unremarkable Language: Adequate Fund of Knowledge: Adequate Attention and Concentration: Easily distracted Memory: Unremarkable Mood: Good Affect: Appropriate, Labile Thought Process & Associations: Disorganized, Tangential Thought Content: Preoccupations (Hyperreligious) Hallucination Type: None Delusion Type: None Suicidal Ideation: No Suicidal Plan: No Suicidal Intention: No Homicidal Ideation: No Homicidal Plan: No Homicidal Intention: No Insight: Poor Judgment: Impulsive Assessment and Plan - Assessment (1) Schizoaffective disorder, bipolar type Code(s): F25.0 - Schizoaffective disorder, bipolar type Status: Acute (2) PTSD (post-traumatic stress disorder) Code(s): F43.10 - Post-traumatic stress disorder, unspecified Status: Chronic - Plan Plan: May 05, 2018: Unsatisfactory response to treatment, the patient continues to demonstrate symptoms of shawna and psychosis but he has insight into his diagnosis and he is motivated to restart his outpatient treatments. Continue inpatient psychiatric treatment and stabilization, involuntary status but with capacity to make medical decisions. The second opinion was documented and left on chart. Start Haldol 10 mg twice a day for treatment of psychosis. Restart Abilify 10 mg/day for treatment of bipolar shawna. Continue hydroxyzine 50 mg every 6 hours as needed for anxiety. Discharge planning: The patient is followed by the [facility] clinic and had been staying with his mother but this will need to be clarified as part of the discharge planning. May 06, 2018: Fair response to inpatient treatment; the patient's thought processes are much more organized today and he is not spouse seen hyperreligious and paranoid beliefs. Patient seems more control of his behavior as he is not as intrusive and he is easily redirectable. Patient is appropriate for trial off of one-to-one observation due to the availability of close observation and video monitoring on this unit. Continue inpatient psychiatric treatment and stabilization, involuntary status but competent for medical decisions. Start Restoril 30 mg at bedtime as needed for insomnia due to patient's past history of tolerability and efficacy with this particular medication. Discharge planning: The patient will be returning to [facility] outpatient clinic upon discharge but his housing situation needs to be clarified due to concerns that he may not be welcome back at his mother's home. Anticipate discharge by the end of this week. Justification for Continued Inpatient Stay: Patient remains an elevated risk for self-harm by self neglect and at risk of harming others as manifested by his recent homicidal threats and therefore will require further inpatient stabilization and preparation of a safe discharge plan. Moving patient to a less restrictive environment at this time may result in decompensation.
--- NOTE | 2018-05-06 14:33 | P.PNIM ---
Subjective Interval history: Follow-up visit uncontrolled diabetes, closed fifth metacarpal fracture Patient is lying on a bench outside. He states his color is returning back to normal in the sun. He denies chest pain, sob or palpitations. Cooperative with examination. Discussed elevated blood sugars > 200 with patient and need to increase Levemir. He is in agreement with plan of care. Physical Exam Vital signs: Vital Signs 05/05/18 15:16 05/06/18 05:51 Temperature 98.8 F 99.1 F Pulse Rate 63 66 Respiratory Rate 18 16 Blood Pressure 113/54 L 124/58 L Pulse Oximetry 96 96 Intake & Output 05/05/18 05/06/18 05/06/18 18:59 06:59 18:59 Other: Date of Last Bowel Movement 05/04/18 05/05/18 Narrative: GENERAL: Well-nourished, well-developed elderly male patient in NAD. Standing at bedside. Sitter present. SKIN: Warm and dry. No rash. HEENT: Normocephalic. Atraumatic. Pupils equal and round. Mucous membranes pink and moist. CARDIOVASCULAR: Did not auscultate. RESPIRATORY: No accessory muscle use. Did not auscultate today. GASTROINTESTINAL: Abdomen soft, non-tender, nondistended. MUSCULOSKELETAL: No obvious deformities. Extremities without clubbing, cyanosis , or edema. Right upper extremity short arm ulnar gutter splint. NEUROLOGICAL: Awake and alert. No obvious cranial nerve deficits. Motor grossly within normal limits. Moving all extremities spontaneously. Normal speech. PSYCHIATRIC: Tangential speech, difficult to redirect with conversation Results Labs CBC & Chem 7: 05/02/18 13:53 05/04/18 10:25 Assessment and Plan (1) Schizoaffective disorder, bipolar type: Code(s): F25.0 - Schizoaffective disorder, bipolar type Status: Acute (2) PTSD (post-traumatic stress disorder): Code(s): F43.10 - Post-traumatic stress disorder, unspecified Status: Chronic Plan 68-year-old male history of HTN, DM, CKD, schizophrenia, admitted to inpatient psychiatry. Hospitalist consulted for medical management of hypoglycemia. Psychosis/Schizophrenia: acute -continue management per psychiatry Diabetes mellitus: Initially with hypoglycemia, now hyperglycemia. Patient likely initially hypoglycemic due to fasting while acutely psychotic. Now patient is eating, and blood sugar 200's. -holding patient's glipizide for now -Monitor Accu-Cheks and started on low-dose SSI for now -Unable to start metformin secondary to renal function -Difficult to control as patient intermittently fasting -Will monitor BG over the next 24 hours to see how much insulin the patient is requiring -If BG still uncontrolled and patient eating, consider restarting his long- acting insulin NPH 50u in am, 20u in pm -05/06 patient's BG persistently elevated, patient tolerating oral intake but not eating all meals, increase levemir to 10u sq hs, titrate up as needed Hypertension: chronic and normotensive -continue patient's coreg and nifedipine with hold parameters -hold patient's lisinopril due to renal function -Monitor BP, adjust antihypertensives as needed CKD, stage III: chronic -avoid nephrotoxins -holding patient's lisinopril -Monitor BMP Right Hand Fracture: hand xray 05/05 showed right metadiaphyseal fifth metacarpal fracture that is minimally to nondisplaced -ortho consulted, rec conservative treatment -short term ulnar gutter splint -non weight bearing RUE -f/u with Ortho in 2 weeks outpatient DVT Prophylaxis: patient is ambulatory Discharge Planning: Will continue to monitor blood glucose and adjust insulin as needed. Code Status: Full Discussed Condition With: RN, patient, supervising MD Discharge Planning: per primary team Progress Note: Quality VTE Deep Vein Thrombosis/Pulmonary Embolism Present on Admission: No
[2018-05-06] MEDS ORDERED: Insulin Detemir Inj 1,000 UNIT/10 ML Vial SQ SCH (21:00)
[2018-05-06] MEDS: Temazepam 15 MG Capsule PO PRN (22:00)
[2018-05-07] MEDS: Insulin NovoLOG Aspart Correctional Sugar Inj SQ SCH ×4 (07:42→21:41)
[2018-05-07] MEDS: Haloperidol 5 MG Tablet PO SCH ×2 (08:30→21:36)
[2018-05-07] MEDS: Carvedilol 12.5 MG Tablet PO SCH ×2 (08:30→21:36)
[2018-05-07] MEDS: Senna/Docusate Sodium 8.6/50 MG Tablet PO SCH ×2 (08:30→21:36)
[2018-05-07] MEDS: ARIPiprazole 10 MG Tablet PO SCH (08:30)
[2018-05-07 10:40] LABS: Baso % (Auto) 0.3 % (0.0-2.0); Eos # (Auto) 0.4 th/mm3 (0.0-0.4); Eos % (Auto) 4.8 % (0.0-4.0); Hematocrit 36.6 % (39.0-51.0); Hemoglobin 11.8 gm/dL (13.0-17.0); Mean Corpuscular HGB Conc 32.2 % (32.0-36.0); Mean Corpuscular Hemoglobin 28.5 pg (27.0-34.0); Mean Corpuscular Volume 88.6 fL (80.0-100.0); Mean Platelet Volume 8.8 fL (7.0-11.0); Mono # (Auto) 0.7 th/mm3 (0.0-0.9); Mono % (Auto) 9.1 % (0.0-8.0); Neut # (Auto) 5.9 th/mm3 (1.8-7.7); Neut % (Auto) 72.8 % (16.0-70.0); Platelet Count 307 th/mm3 (150-450); Red Blood Count 4.13 mil/mm3 (4.50-5.90); Red Cell Distribution Width 15.4 % (11.6-17.2)
[2018-05-07 11:10] LABS: Calcium 8.7 mg/dL (8.5-10.1); Carbon Dioxide 25.1 meq/L (21.0-32.0); Potassium 4.4 meq/L (3.5-5.1)
--- NOTE | 2018-05-07 12:50 | P.PNPSY ---
Subjective Chief Complaint: "I will be the one to kill Lucifer" Remarks: Patient seen for follow-up, chart reviewed, patient discussed with nursing staff ; we reviewed the patient's mood, thoughts, and behaviors from overnight and this morning. Nurse reports that the patient slept much better last night and got at least 5 hours of rest. On evening shift however the patient did become agitated and verbally aggressive with another peer that seem to be triggered by a delusional belief that his mother was dying. The patient was not consolable even after telephone contact was made with his mother. The patient refused his evening insulin and a tore off the splint that had been placed on a fractured hand. This morning the patient is described as pleasant and socializing appropriately with his peers. He was asked about last night incident and he cannot recall and he characterizes it as a "PTSD outburst". The patient expressed continued motivation to adhere to his psychotropic medications and he even acknowledged that he is at risk for nonadherence, "because I stay very busy " and he would like long-acting injectable options. Discharge plan was discussed and the patient reports that he would prefer to return to his mother' s home but if she will not let him return there then he has a room at the [facility] and expressed that he would stay at. Mental Status Examination Appearance: Appropriate Consciousness: Alert Orientation: x4 Motor Activity: Normal gait Speech: Unremarkable Language: Adequate Fund of Knowledge: Adequate Attention and Concentration: Easily distracted Memory: Unremarkable Mood: Good Affect: Appropriate, Labile Thought Process & Associations: Intact, Goal directed, Loose associations ( Improving) Thought Content: Preoccupations (Hyperreligious but improving) Hallucination Type: None Delusion Type: None Suicidal Ideation: No Suicidal Plan: No Suicidal Intention: No Homicidal Ideation: No Homicidal Plan: No Homicidal Intention: No Insight: Fair Judgment: Impulsive Assessment and Plan - Assessment (1) Schizoaffective disorder, bipolar type Code(s): F25.0 - Schizoaffective disorder, bipolar type Status: Acute (2) PTSD (post-traumatic stress disorder) Code(s): F43.10 - Post-traumatic stress disorder, unspecified Status: Chronic - Plan Plan: May 05, 2018: Unsatisfactory response to treatment, the patient continues to demonstrate symptoms of shawna and psychosis but he has insight into his diagnosis and he is motivated to restart his outpatient treatments. Continue inpatient psychiatric treatment and stabilization, involuntary status but with capacity to make medical decisions. The second opinion was documented and left on chart. Start Haldol 10 mg twice a day for treatment of psychosis. Restart Abilify 10 mg/day for treatment of bipolar shawna. Continue hydroxyzine 50 mg every 6 hours as needed for anxiety. Discharge planning: The patient is followed by the [facility] clinic and had been staying with his mother but this will need to be clarified as part of the discharge planning. May 06, 2018: Fair response to inpatient treatment; the patient's thought processes are much more organized today and he is not spouse seen hyperreligious and paranoid beliefs. Patient seems more control of his behavior as he is not as intrusive and he is easily redirectable. Patient is appropriate for trial off of one-to-one observation due to the availability of close observation and video monitoring on this unit. Continue inpatient psychiatric treatment and stabilization, involuntary status but competent for medical decisions. Start Restoril 30 mg at bedtime as needed for insomnia due to patient's past history of tolerability and efficacy with this particular medication. Discharge planning: The patient will be returning to [facility] outpatient clinic upon discharge but his housing situation needs to be clarified due to concerns that he may not be welcome back at his mother's home. Anticipate discharge by the end of this week. May 07, 2018: Fair response to inpatient treatment; the patient's hyperreligious focus has become less dominant and he has generally been pleasant and cooperative with staff. He did have one episode of agitation last evening in association with the delusional belief that his mother was dying and this resulted in some aggressive behaviors but this morning he is stable again. The patient has just recently been restarted on his psychotropics and will require more time on therapeutic doses to reach stabilization. The patient would like to be considered for discharge by the end of the week but given his recent episode of aggression, we will need to see at least 48 hours of stable thoughts mood and behavior prior to considering a safe discharge. Additionally the patient is without a stable custodial to return to at this time. Continue inpatient psychiatric treatment, involuntary status but, competent for medical decisions. Consider long-acting injectable options for Abilify and Haldol. Given that Haldol is more readily accessible we will most likely give Haldol long-acting injection with adjunctive treatment with Abilify oral tablets at the time of discharge. Discharge planning: Patient will be returning to the [facility] outpatient clinic upon discharge but his housing situation needs to be clarified due to his mother refusing to allow him back in the home and without a stable home environment he is a high risk of relapse and recurrence of his psychotic and manic mood state. He has been cooperative with care and is agreeable with continued admission through the end of this week but he is unlikely to agree to an extension of his stay if clinically indicated and this is based on his previous admission in which he demanded discharge prior to clinical indications ; request for extension of the [place] act order [place] be made in [place] tomorrow morning. Justification for Continued Inpatient Stay: Patient remains an elevated risk for self-harm by self neglect of his medical and psychiatric conditions leading to an exacerbation of delusional believes with the risk of harming others by acting out on these delusions and therefore he will require further inpatient stabilization and preparation of a safe discharge plan. Moving patient to a less restrictive environment at this time may result in decompensation.
--- NOTE | 2018-05-07 18:25 | P.PNIM ---
Subjective Interval history: Follow-up visit uncontrolled diabetes, closed fifth metacarpal fracture. Patient denies discomfort. Blood sugars high 200's to 300' s per RN. Discussed resumin patient's home insulin dose. Patient reports good PO intake. No abdominal pain, nausea or vomiting. Patient denies cough, fevers or chills. Physical Exam Vital signs: Vital Signs 05/07/18 05:48 05/07/18 16:49 Temperature 98.3 F 97.5 F L Pulse Rate 67 64 Respiratory Rate 17 17 Blood Pressure 115/55 L 137/65 Pulse Oximetry 96 95 Intake & Output 05/06/18 05/07/18 05/07/18 18:59 06:59 18:59 Other: Date of Last Bowel Movement 05/05/18 05/05/18 05/05/18 Narrative: GENERAL: Well-nourished, well-developed elderly male patient in NAD. Standing at bedside. Sitter present. SKIN: Warm and dry. No rash. HEENT: Normocephalic. Atraumatic. Pupils equal and round. Mucous membranes pink and moist. CARDIOVASCULAR: Did not auscultate. RESPIRATORY: No accessory muscle use. Did not auscultate today. GASTROINTESTINAL: Abdomen soft, non-tender, nondistended. MUSCULOSKELETAL: No obvious deformities. Extremities without clubbing, cyanosis , or edema. Right upper extremity short arm ulnar gutter splint. NEUROLOGICAL: Awake and alert. No obvious cranial nerve deficits. Motor grossly within normal limits. Moving all extremities spontaneously. Normal speech. PSYCHIATRIC: Tangential speech, difficult to redirect with conversation Results Labs CBC & Chem 7: 05/07/18 09:50 05/07/18 09:50 Assessment and Plan (1) Schizoaffective disorder, bipolar type: Code(s): F25.0 - Schizoaffective disorder, bipolar type Status: Acute (2) PTSD (post-traumatic stress disorder): Code(s): F43.10 - Post-traumatic stress disorder, unspecified Status: Chronic Plan 68-year-old male history of HTN, DM, CKD, schizophrenia, admitted to inpatient psychiatry. Hospitalist consulted for medical management of hypoglycemia. Psychosis/Schizophrenia: acute -continue management per psychiatry Diabetes mellitus: Initially with hypoglycemia, now hyperglycemia. Patient likely initially hypoglycemic due to fasting while acutely psychotic. Now patient is eating, and blood sugar 200's - 300's. -holding patient's glipizide for now -Monitor Accu-Cheks and started on low-dose SSI for now -Unable to start metformin secondary to renal function -restart his long-acting insulin NPH 50u in am, 20u in pm Hypertension: chronic and normotensive -continue patient's coreg and nifedipine with hold parameters -hold patient's lisinopril due to renal function -Monitor BP, adjust antihypertensives as needed CKD, stage III: chronic -avoid nephrotoxins -holding patient's lisinopril -Monitor BMP Right Hand Fracture: hand xray 05/05 showed right metadiaphyseal fifth metacarpal fracture that is minimally to nondisplaced -ortho consulted, rec conservative treatment -short term ulnar gutter splint -non weight bearing RUE -f/u with Ortho in 2 weeks outpatient DVT Prophylaxis: patient is ambulatory Discharge Planning: Will continue to monitor blood glucose and adjust insulin as needed. Code Status: Full Discussed Condition With: RN, patient, supervising MD Discharge Planning: per primary team Progress Note: Quality VTE Deep Vein Thrombosis/Pulmonary Embolism Present on Admission: No
[2018-05-08] MEDS: Insulin NovoLOG Aspart Correctional Sugar Inj SQ SCH ×4 (08:02→21:19)
[2018-05-08] MEDS: ARIPiprazole 10 MG Tablet PO SCH (08:05)
[2018-05-08] MEDS: Carvedilol 12.5 MG Tablet PO SCH ×2 (08:06→21:14)
[2018-05-08] MEDS: Senna/Docusate Sodium 8.6/50 MG Tablet PO SCH ×2 (08:07→21:14)
[2018-05-08] MEDS: Haloperidol 5 MG Tablet PO SCH ×2 (08:07→21:14)
--- NOTE | 2018-05-08 12:31 | P.PNPSY ---
Subjective Chief Complaint: "I will be the one to kill Lucifer" Remarks: Patient seen for follow-up, chart reviewed, patient discussed with nursing staff ; we reviewed the patient's mood, thoughts, and behaviors from overnight and this morning. There is reports that patient slept 5 hours overnight and seemed to have difficulty staying asleep and did not use his Restoril to fall asleep patient is described as pleasant and conversations noted to be only a little illogical. Patient is not as intrusive but he is involved in everyone's business according to nursing staff. Patient was presented in [place] act court this morning and during the proceedings the patient expressed a grandiose belief that he is in direct communication with the casino supervisor who is aware of his hospitalization and has ordered the [employer] to investigate his brothers motivation for having him [employer] acted. The patient agrees to continue his current psychotropic medications and inpatient hospitalization and will work with the discharge team to find a safe place for him to go after discharge. He is denying suicidal or homicidal thoughts. Mental Status Examination Appearance: Appropriate Consciousness: Alert Orientation: x4 Motor Activity: Normal gait Speech: Unremarkable Language: Adequate Fund of Knowledge: Adequate Attention and Concentration: Easily distracted Memory: Unremarkable Mood: Good, Anxious Affect: Appropriate Thought Process & Associations: Intact, Goal directed, Loose associations ( Improving) Thought Content: Preoccupations (Hyperreligious but improving), Delusional (He believes that President Justus has ordered the [employer] to help investigate his case) Hallucination Type: None Delusion Type: Paranoid (And grandiose) Suicidal Ideation: No Suicidal Plan: No Suicidal Intention: No Homicidal Ideation: No Homicidal Plan: No Homicidal Intention: No Insight: Poor Judgment: Impulsive Assessment and Plan - Assessment (1) Schizoaffective disorder, bipolar type Code(s): F25.0 - Schizoaffective disorder, bipolar type Status: Acute (2) PTSD (post-traumatic stress disorder) Code(s): F43.10 - Post-traumatic stress disorder, unspecified Status: Chronic - Plan Plan: May 05, 2018: Unsatisfactory response to treatment, the patient continues to demonstrate symptoms of shawna and psychosis but he has insight into his diagnosis and he is motivated to restart his outpatient treatments. Continue inpatient psychiatric treatment and stabilization, involuntary status but with capacity to make medical decisions. The second opinion was documented and left on chart. Start Haldol 10 mg twice a day for treatment of psychosis. Restart Abilify 10 mg/day for treatment of bipolar shawna. Continue hydroxyzine 50 mg every 6 hours as needed for anxiety. Discharge planning: The patient is followed by the [facility] clinic and had been staying with his mother but this will need to be clarified as part of the discharge planning. May 06, 2018: Fair response to inpatient treatment; the patient's thought processes are much more organized today and he is not spouse seen hyperreligious and paranoid beliefs. Patient seems more control of his behavior as he is not as intrusive and he is easily redirectable. Patient is appropriate for trial off of one-to-one observation due to the availability of close observation and video monitoring on this unit. Continue inpatient psychiatric treatment and stabilization, involuntary status but competent for medical decisions. Start Restoril 30 mg at bedtime as needed for insomnia due to patient's past history of tolerability and efficacy with this particular medication. Discharge planning: The patient will be returning to [facility] outpatient clinic upon discharge but his housing situation needs to be clarified due to concerns that he may not be welcome back at his mother's home. Anticipate discharge by the end of this week. May 07, 2018: Fair response to inpatient treatment; the patient's hyperreligious focus has become less dominant and he has generally been pleasant and cooperative with staff. He did have one episode of agitation last evening in association with the delusional belief that his mother was dying and this resulted in some aggressive behaviors but this morning he is stable again. The patient has just recently been restarted on his psychotropics and will require more time on therapeutic doses to reach stabilization. The patient would like to be considered for discharge by the end of the week but given his recent episode of aggression, we will need to see at least 48 hours of stable thoughts mood and behavior prior to considering a safe discharge. Additionally the patient is without a stable custodial to return to at this time. Continue inpatient psychiatric treatment, involuntary status but, competent for medical decisions. Consider long-acting injectable options for Abilify and Haldol. Given that Haldol is more readily accessible we will most likely give Haldol long-acting injection with adjunctive treatment with Abilify oral tablets at the time of discharge. Discharge planning: Patient will be returning to the [facility] outpatient clinic upon discharge but his housing situation needs to be clarified due to his mother refusing to allow him back in the home and without a stable home environment he is a high risk of relapse and recurrence of his psychotic and manic mood state. He has been cooperative with care and is agreeable with continued admission through the end of this week but he is unlikely to agree to an extension of his stay if clinically indicated and this is based on his previous admission in which he demanded discharge prior to clinical indications ; request for extension of the [place] act order will be made in [place] act court tomorrow morning. May 08, 2018: Fair response to treatment as patient's mood and affect have definitely stabilized but he continues to hold onto paranoid and grandiose delusional beliefs that would place him at risk for noncompliance with treatment and possibly aggressive behaviors towards others therefore he will be maintained on involuntary hospitalization status as approved from the [place] act court dressage judge for 1 more week. Continue inpatient psychiatric treatment, involuntary status but competent for medical decisions. Continue current medications unchanged as he will require more time to reach therapeutic efficacy. We will consider transitioning to Haldol decanoate at the time of discharge with Abilify p.o. continued as an adjunctive treatment. Discharge planning: The patient will be returning to [facility] outpatient clinic but his housing and custodial situation remains uncertainty and will need to be resolved prior to discharge. Justification for Continued Inpatient Stay: Patient remains an elevated risk for self-harm by self neglect and risk of harming others by acting out on his paranoid delusions and will require further inpatient stabilization and preparation of a safe discharge plan. Moving patient to a less restrictive environment at this time may result in decompensation.
--- NOTE | 2018-05-08 15:39 | P.PNIM ---
Subjective Interval history: Follow-up visit uncontrolled diabetes, closed fifth metacarpal fracture. Patient is walking around in the hallway. He denies any discomfort. He states he knows this wealthy [place] person who is going to give him 5 million dollars but he is going to ask for 100 million instead so he can buy a yacht and help those in need. He further states he would be ok with the 5 million but could do more with 100 million. No distress noted. Blood sugars remain elevated , however, patient was just restarted on his home dose insulin yesterday and we will monitor for another 24-48 hours. No chest pain, shortness of breath, palpitations, cough, fever or chills. Physical Exam Vital signs: Vital Signs 05/07/18 16:49 05/08/18 06:00 Temperature 97.5 F L 97.8 F Pulse Rate 64 66 Respiratory Rate 17 18 Blood Pressure 137/65 144/65 H Pulse Oximetry 95 97 Intake & Output 05/07/18 05/08/18 05/08/18 18:59 06:59 18:59 Other: Date of Last Bowel Movement 05/05/18 05/05/18 05/05/18 Narrative: GENERAL: Well-nourished, well-developed elderly male patient in [facility]. Standing at bedside. Sitter present. SKIN: Warm and dry. No rash. HEENT: Normocephalic. Atraumatic. Pupils equal and round. Mucous membranes pink and moist. CARDIOVASCULAR: Did not auscultate. RESPIRATORY: No accessory muscle use. Did not auscultate today. GASTROINTESTINAL: Abdomen soft, non-tender, nondistended. MUSCULOSKELETAL: No obvious deformities. Extremities without clubbing, cyanosis , or edema. Right upper extremity short arm ulnar gutter splint. NEUROLOGICAL: Awake and alert. No obvious cranial nerve deficits. Motor grossly within normal limits. Moving all extremities spontaneously. Normal speech. PSYCHIATRIC: Tangential speech, difficult to redirect with conversation Results Labs CBC & Chem 7: 05/07/18 09:50 05/07/18 09:50 Assessment and Plan (1) Schizoaffective disorder, bipolar type: Code(s): F25.0 - Schizoaffective disorder, bipolar type Status: Acute (2) PTSD (post-traumatic stress disorder): Code(s): F43.10 - Post-traumatic stress disorder, unspecified Status: Chronic Plan 68-year-old male history of HTN, DM, CKD, schizophrenia, admitted to inpatient psychiatry. Hospitalist consulted for medical management of hypoglycemia. Psychosis/Schizophrenia: acute -continue management per psychiatry Diabetes mellitus: Initially with hypoglycemia, now hyperglycemia. Patient likely initially hypoglycemic due to fasting while acutely psychotic. Now patient is eating, and blood sugar 100-200's since midnight and slightly improved -holding patient's glipizide for now -Monitor Accu-Cheks and started on low-dose SSI for now -Unable to start metformin secondary to renal function -continue his long-acting insulin NPH 50u in am, 20u in pm (restarted 05/07/18 ) Hypertension: chronic and normotensive -continue patient's coreg and nifedipine with hold parameters -hold patient's lisinopril due to renal function -Monitor BP, adjust antihypertensives as needed CKD, stage III: chronic -avoid nephrotoxins -holding patient's lisinopril -worsening BUN/Cr -check renal US Right Hand Fracture: hand xray 05/05 showed right metadiaphyseal fifth metacarpal fracture that is minimally to nondisplaced -ortho consulted, rec conservative treatment -short term ulnar gutter splint -non weight bearing RUE -f/u with Ortho in 2 weeks outpatient DVT Prophylaxis: patient is ambulatory Discharge Planning: Will continue to monitor blood glucose and adjust insulin as needed. Continue to monitor renal function closely and follow up in renal US. Code Status: Full Discussed Condition With: RN, patient, supervising MD Discharge Planning: per primary team Progress Note: Quality VTE Deep Vein Thrombosis/Pulmonary Embolism Present on Admission: No
--- NOTE | 2018-05-08 20:34 | US ---
EXAM DATE: 05/08/2018 8:29 PM EST AGE/SEX: 68 years / Male INDICATIONS: Increasing BUN and Creatinine. CLINICAL DATA: This is the patient's initial encounter. Patient reports that signs and symptoms have been present for 1 day and indicates a pain score of 1/10. MEDICAL/SURGICAL HISTORY: Diabetes. Hypertension. Kidney failure. Right hand fracture. . Ank le surgery. COMPARISON: No prior exams available for comparison. MEASUREMENTS: Right Kidney:__9.9 x 5.0 x 5.1 cm Left Kidney:__10.3 x 5.3 x 5.7 cm FINDINGS: Right Kidney: Normal echogenicity and cortical thickness. No mass or hydronephrosis. Left Kidney: Simple appearing anechoic cyst in the superior pole measuring 4.9 x 4.2 x 5.5 cm. Otherw ise, normal cortical echogenicity and cortical thickness without hydronephrosis. Bladder: Within normal limits given the degree of distension. Other: None. CONCLUSION: 1. No sonographic evidence for obstructive uropathy. 2. 5.5 cm simple appearing cyst in the superior pole of the left kidney. Electronically signed by: Quinton Knutson MD Board Certified Radiologist 05/08/2018 8:33 PM EST
[2018-05-09] MEDS: Temazepam 15 MG Capsule PO PRN (02:30)
[2018-05-09] MEDS: Insulin NovoLOG Aspart Correctional Sugar Inj SQ SCH ×4 (07:42→21:55)
[2018-05-09] MEDS: Carvedilol 12.5 MG Tablet PO SCH ×2 (08:17→21:44)
[2018-05-09] MEDS: Senna/Docusate Sodium 8.6/50 MG Tablet PO SCH ×2 (08:18→21:43)
[2018-05-09] MEDS: ARIPiprazole 10 MG Tablet PO SCH (08:18)
[2018-05-09] MEDS: Haloperidol 5 MG Tablet PO SCH ×3 (08:19→21:43)
--- NOTE | 2018-05-09 12:20 | P.PNPSY ---
Subjective Chief Complaint: "I will be the one to kill Lucifer" Remarks: Patient seen for follow-up, chart reviewed, patient discussed with nursing staff ; we reviewed the patient's mood, thoughts, and behaviors from overnight and this morning. Nurse reports that the patient was little bit more restless last night and only got 5 hours of sleep. He seen sitting in the day room talking to peers after breakfast. He expressed grandiose belief that he can ensure that the world does not go without food. The patient reportedly also called a personal injury specialist and after getting off the phone he cleared that he will have millions and that he will use it by everyone a car. Patient's met with the provider and expressed satisfaction with his treatment and denies suicidal or homicidal ideations and denies any hallucinations but he persisted in his efforts to give dietary advice to the provider and insisted that following his instructions the provider could lose 40 pounds in 2 months. Mental Status Examination Appearance: Appropriate Consciousness: Alert Orientation: x4 Motor Activity: Normal gait Speech: Unremarkable Language: Adequate Fund of Knowledge: Adequate Attention and Concentration: Easily distracted Memory: Unremarkable Mood: Good, Anxious Affect: Appropriate Thought Process & Associations: Intact, Goal directed, Loose associations ( Improving) Thought Content: Preoccupations (Hyperreligious but improving), Delusional ( Grandiose) Hallucination Type: None Delusion Type: Paranoid (And grandiose) Suicidal Ideation: No Suicidal Plan: No Suicidal Intention: No Homicidal Ideation: No Homicidal Plan: No Homicidal Intention: No Insight: Poor Judgment: Impulsive Assessment and Plan - Assessment (1) Schizoaffective disorder, bipolar type Code(s): F25.0 - Schizoaffective disorder, bipolar type Status: Acute (2) PTSD (post-traumatic stress disorder) Code(s): F43.10 - Post-traumatic stress disorder, unspecified Status: Chronic - Plan Plan: May 05, 2018: Unsatisfactory response to treatment, the patient continues to demonstrate symptoms of shawna and psychosis but he has insight into his diagnosis and he is motivated to restart his outpatient treatments. Continue inpatient psychiatric treatment and stabilization, involuntary status but with capacity to make medical decisions. The second opinion was documented and left on chart. Start Haldol 10 mg twice a day for treatment of psychosis. Restart Abilify 10 mg/day for treatment of bipolar shawna. Continue hydroxyzine 50 mg every 6 hours as needed for anxiety. Discharge planning: The patient is followed by the [facility] clinic and had been staying with his mother but this will need to be clarified as part of the discharge planning. May 06, 2018: Fair response to inpatient treatment; the patient's thought processes are much more organized today and he is not spouse seen hyperreligious and paranoid beliefs. Patient seems more control of his behavior as he is not as intrusive and he is easily redirectable. Patient is appropriate for trial off of one-to-one observation due to the availability of close observation and video monitoring on this unit. Continue inpatient psychiatric treatment and stabilization, involuntary status but competent for medical decisions. Start Restoril 30 mg at bedtime as needed for insomnia due to patient's past history of tolerability and efficacy with this particular medication. Discharge planning: The patient will be returning to [facility] outpatient clinic upon discharge but his housing situation needs to be clarified due to concerns that he may not be welcome back at his mother's home. Anticipate discharge by the end of this week. May 07, 2018: Fair response to inpatient treatment; the patient's hyperreligious focus has become less dominant and he has generally been pleasant and cooperative with staff. He did have one episode of agitation last evening in association with the delusional belief that his mother was dying and this resulted in some aggressive behaviors but this morning he is stable again. The patient has just recently been restarted on his psychotropics and will require more time on therapeutic doses to reach stabilization. The patient would like to be considered for discharge by the end of the week but given his recent episode of aggression, we will need to see at least 48 hours of stable thoughts mood and behavior prior to considering a safe discharge. Additionally the patient is without a stable group home to return to at this time. Continue inpatient psychiatric treatment, involuntary status but, competent for medical decisions. Consider long-acting injectable options for Abilify and Haldol. Given that Haldol is more readily accessible we will most likely give Haldol long-acting injection with adjunctive treatment with Abilify oral tablets at the time of discharge. Discharge planning: Patient will be returning to the [facility] outpatient clinic upon discharge but his housing situation needs to be clarified due to his mother refusing to allow him back in the home and without a stable home environment he is a high risk of relapse and recurrence of his psychotic and manic mood state. He has been cooperative with care and is agreeable with continued admission through the end of this week but he is unlikely to agree to an extension of his stay if clinically indicated and this is based on his previous admission in which he demanded discharge prior to clinical indications ; request for extension of the [place] act order will be made in [place] act court tomorrow morning. May 08, 2018: Fair response to treatment as patient's mood and affect have definitely stabilized but he continues to hold onto paranoid and grandiose delusional beliefs that would place him at risk for noncompliance with treatment and possibly aggressive behaviors towards others therefore he will be maintained on involuntary hospitalization status as approved from the [employer] act court interventional pain physician for 1 more week. Continue inpatient psychiatric treatment, involuntary status but competent for medical decisions. Continue current medications unchanged as he will require more time to reach therapeutic efficacy. We will consider transitioning to Haldol decanoate at the time of discharge with Abilify p.o. continued as an adjunctive treatment. Discharge planning: The patient will be returning to [facility] outpatient clinic but his housing and group home situation remains uncertainty and will need to be resolved prior to discharge. May 09, 2018: Fair response to treatment, the patient is much more organized and less hyperreligious them when he was admitted but he continues to express grandiose delusions as well as paranoia about his brothers intent to have him hospitalized therefore he requires continued psychiatric stabilization before he will be safe enough to return to independent living. Continue inpatient psychiatric treatment, involuntary status but competent for medical decisions. Increase Haldol to 10 mg twice a day for treatment of shawna with grandiose delusions. We will consider transitioning to Haldol decanoate at the time of discharge with Abilify p.o. continued as an adjunctive treatment. -Discharge planning: The patient will be returning to [facility] outpatient clinic but his housing and group home situation remains uncertainty and will need to be resolved prior to discharge. Justification for Continued Inpatient Stay: Patient remains an elevated risk for self-harm by self neglect and nonadherence of medications which leads to severe manic and psychotic symptoms and place him at risk of harming others by acting out on his paranoia as was the case when he threatened to kill his outpatient psychiatrist prior to this admission and therefore he will require further inpatient stabilization and preparation of a safe discharge plan. Moving patient to a less restrictive environment at this time may result in decompensation.
[2018-05-09 14:42] LABS: Calcium 8.7 mg/dL (8.5-10.1); Carbon Dioxide 26.3 meq/L (21.0-32.0); Potassium 4.9 meq/L (3.5-5.1)
[2018-05-09] MEDS ORDERED: diphenhydrAMINE 2%/Zinc Cream 30 GM Tube TOPICAL PRN (16:31)
--- NOTE | 2018-05-09 16:31 | P.PNIM ---
Subjective Interval history: Follow-up visit uncontrolled diabetes, closed fifth metacarpal fracture Patient's complains of skin tear to his right lower extremity. He states this happened while he was handcuffed in a police vehicle. He noticed itching to his lower extremities and RN states he was scratching his legs earlier. Blood sugars slightly improved. Physical Exam Vital signs: Vital Signs 05/08/18 17:22 05/09/18 05:56 Temperature 97.7 F 97.7 F Pulse Rate 64 76 Respiratory Rate 18 17 Blood Pressure 174/74 H 156/66 H Pulse Oximetry 96 98 Intake & Output 05/08/18 05/09/18 05/09/18 18:59 06:59 18:59 Other: Date of Last Bowel Movement 05/05/18 Narrative: GENERAL: Well-nourished, well-developed elderly male patient in [facility]. Standing at bedside. Sitter present. SKIN: Warm and dry. No rash. HEENT: Normocephalic. Atraumatic. Pupils equal and round. Mucous membranes pink and moist. CARDIOVASCULAR: Did not auscultate. RESPIRATORY: No accessory muscle use. Did not auscultate today. GASTROINTESTINAL: Abdomen soft, non-tender, nondistended. MUSCULOSKELETAL: No obvious deformities. Right lower extremity with skin tear, left lower extremity abrasion and dry skin. Right upper extremity short arm ulnar gutter splint. NEUROLOGICAL: Awake and alert. No obvious cranial nerve deficits. Motor grossly within normal limits. Moving all extremities spontaneously. Normal speech. PSYCHIATRIC: Tangential speech, difficult to redirect with conversation Results Labs CBC & Chem 7: 05/07/18 09:50 05/09/18 14:00 Imaging Imaging: Impressions Abdomen/Bladder Ultrasound 05/08/18 00:00 CONCLUSION: 1. No sonographic evidence for obstructive uropathy. 2. 5.5 cm simple appearing cyst in the superior pole of the left kidney. Assessment and Plan (1) Schizoaffective disorder, bipolar type: Code(s): F25.0 - Schizoaffective disorder, bipolar type Status: Acute (2) PTSD (post-traumatic stress disorder): Code(s): F43.10 - Post-traumatic stress disorder, unspecified Status: Chronic Plan 68-year-old male history of HTN, DM, CKD, schizophrenia, admitted to inpatient psychiatry. Hospitalist consulted for medical management of hypoglycemia. Psychosis/Schizophrenia: acute -continue management per psychiatry Diabetes mellitus: Initially with hypoglycemia, now hyperglycemia. Patient likely initially hypoglycemic due to fasting while acutely psychotic. Now patient is eating, and blood sugar 200's - slightly improved -resume glipizide -Monitor Accu-Cheks and SSI -Unable to start metformin secondary to renal function -continue his long-acting insulin NPH 50u in am, 20u in pm (restarted 05/07/18 ) Right lower extremity skin tear: patient this occurred secondary to being cuffed prior to arrival -cleanse daily, apply antibiotic cream and Tegaderm -itching to bilateral lower extremity, patient scratches frequently per RN. Benadryl cream as needed. Hypertension: chronic and normotensive -continue patient's coreg and nifedipine with hold parameters -hold patient's lisinopril due to renal function -Hydralazine PO PRN with parameters -Monitor BP, adjust antihypertensives as needed CKD, stage III: chronic -avoid nephrotoxins -holding patient's lisinopril -BUN/Cr slightly improved, encourage PO fluid intake -renal US no sonographic evidence for obstructive uropathy, 5.5 cm simple appearing cyst in the superior pole of left kidney Right Hand Fracture: hand xray 05/05 showed right metadiaphyseal fifth metacarpal fracture that is minimally to nondisplaced -ortho consulted, rec conservative treatment -short term ulnar gutter splint -non weight bearing RUE -f/u with Ortho in 2 weeks outpatient DVT Prophylaxis: patient is ambulatory Discharge Planning: Will continue to monitor blood glucose and adjust insulin as needed. Continue to monitor renal function closely. Code Status: Full Discussed Condition With: RN, patient, supervising MD Discharge Planning: per primary team Progress Note: Quality VTE Deep Vein Thrombosis/Pulmonary Embolism Present on Admission: No
[2018-05-09] MEDS ORDERED: hydrALAZINE 25 MG Tablet PO PRN (16:36)
[2018-05-09] MEDS: glipiZIDE 10 MG Tablet PO SCH (21:44)
[2018-05-10] MEDS: Temazepam 15 MG Capsule PO PRN (00:21)
[2018-05-10] MEDS: Insulin NovoLOG Aspart Correctional Sugar Inj SQ SCH ×4 (08:46→21:44)
[2018-05-10] MEDS: glipiZIDE 10 MG Tablet PO SCH ×2 (09:30→21:32)
[2018-05-10] MEDS: ARIPiprazole 10 MG Tablet PO SCH (09:30)
[2018-05-10] MEDS: Haloperidol 5 MG Tablet PO SCH ×2 (09:30→21:32)
[2018-05-10] MEDS: Senna/Docusate Sodium 8.6/50 MG Tablet PO SCH ×2 (09:31→21:32)
[2018-05-10] MEDS: Carvedilol 12.5 MG Tablet PO SCH ×2 (09:54→21:32)
[2018-05-10 10:20] LABS: Calcium 8.7 mg/dL (8.5-10.1); Carbon Dioxide 26.1 meq/L (21.0-32.0); Potassium 4.6 meq/L (3.5-5.1)
--- NOTE | 2018-05-10 12:15 | P.PNIM ---
Subjective Interval history: Follow-up visit diabetes with hyperglycemia, MALIK, cellulitis bilateral lower extremities Patient is sitting up in a recliner chair in the community room. He reports itching to his bilateral lower extremities. Redness and scratch betancourt noted to bilateral lower extremities. Patient also with skin tear to right lower extremity that he states was as a results of being cuffed by the police. Patient denies chest discomfort, shortness of breath, cough, fevers or chills. RN states blood sugars have been improving. Physical Exam Vital signs: Vital Signs 05/10/18 06:00 Temperature 98.1 F Pulse Rate 69 Respiratory Rate 18 Blood Pressure 133/63 Pulse Oximetry 100 Narrative: GENERAL: Well-nourished, well-developed elderly male patient in [facility]. Resting in recliner chair. SKIN: Warm and dry. No rash. HEENT: Normocephalic. Atraumatic. Pupils equal and round. Mucous membranes pink and moist. CARDIOVASCULAR: Did not auscultate. RESPIRATORY: No accessory muscle use. Did not auscultate today. GASTROINTESTINAL: Abdomen soft, non-tender, nondistended. MUSCULOSKELETAL: No obvious deformities. Right lower extremity with skin tear, left lower extremity abrasion and dry skin. Right upper extremity short arm ulnar gutter splint. NEUROLOGICAL: Awake and alert. No obvious cranial nerve deficits. Motor grossly within normal limits. Moving all extremities spontaneously. Normal speech. PSYCHIATRIC: Tangential speech, difficult to redirect with conversation Results Labs CBC & Chem 7: 05/07/18 09:50 05/10/18 08:50 Assessment and Plan (1) Schizoaffective disorder, bipolar type: Code(s): F25.0 - Schizoaffective disorder, bipolar type Status: Acute (2) PTSD (post-traumatic stress disorder): Code(s): F43.10 - Post-traumatic stress disorder, unspecified Status: Chronic Plan 68-year-old male history of HTN, DM, CKD, schizophrenia, admitted to inpatient psychiatry. Hospitalist consulted for medical management of hypoglycemia. Psychosis/Schizophrenia: acute -continue management per psychiatry Diabetes mellitus: Initially with hypoglycemia, now hyperglycemia. Patient likely initially hypoglycemic due to fasting while acutely psychotic. -improving -resume glipizide, continue his long-acting insulin NPH 50u in am, 20u in pm (restarted 05/07/18) -Monitor Accu-Cheks and SSI -Unable to start metformin secondary to renal function Right lower extremity skin tear/cellulitis: patient states this occurred secondary to being cuffed prior to arrival -cleanse daily, apply antibiotic cream -itching to bilateral lower extremity, patient scratches frequently per RN. Benadryl cream as needed. -pt treated with Bactrim Hypertension: chronic and normotensive -continue patient's Coreg and nifedipine with hold parameters -hold patient's lisinopril due to renal function -Hydralazine PO PRN with parameters -Monitor BP, adjust antihypertensives as needed CKD, stage III: chronic -avoid nephrotoxins -holding patient's lisinopril -BUN/Cr slowly improving, encourage PO fluid intake -renal US no sonographic evidence for obstructive uropathy, 5.5 cm simple appearing cyst in the superior pole of left kidney Right Hand Fracture: hand x-ray 05/05 showed right metadiaphyseal fifth metacarpal fracture that is minimally to nondisplaced -ortho consulted, rec conservative treatment -short term ulnar gutter splint -non weight bearing RUE -f/u with Ortho in 2 weeks outpatient DVT Prophylaxis: patient is ambulatory Discharge Planning: Will continue to monitor blood glucose and adjust insulin as needed. Continue to monitor renal function closely. Monitor bilateral lower extremity redness for worsening vs improvement of skin tear & cellulitis. Code Status: Full Discussed Condition With: RN, patient, supervising MD Discharge Planning: per primary team Progress Note: Quality VTE Deep Vein Thrombosis/Pulmonary Embolism Present on Admission: No
--- NOTE | 2018-05-10 17:21 | P.PNPSY ---
Subjective Chief Complaint: "I will be the one to kill Lucifer" Remarks: Reviewed electronic medical records and discussed case with staff. Follow-up was conducted in the exam room with funmi Anguiano present. Patient reports that he feels "Dandy, even though I am dying". When asked what he is dying from he reports kidney failure. He states that he slept "great". Patient reports his mood as "terrific". He goes on to claim that he has bilateral lower extremity edema as a result of agent orange during [place]. 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 He denies any side effects from his medication. Mental Status Examination Appearance: Appropriate Consciousness: Alert Orientation: x4 Motor Activity: Normal gait Speech: Unremarkable Language: Adequate Fund of Knowledge: Adequate Attention and Concentration: Easily distracted Memory: Unremarkable Mood: Good, Anxious Affect: Appropriate Thought Process & Associations: Intact, Goal directed, Loose associations ( Improving) Thought Content: Preoccupations (Hyperreligious but improving), Delusional ( Grandiose) Hallucination Type: None Delusion Type: Paranoid (And grandiose) Suicidal Ideation: No Suicidal Plan: No Suicidal Intention: No Homicidal Ideation: No Homicidal Plan: No Homicidal Intention: No Insight: Poor Judgment: Impulsive Assessment and Plan - Assessment (1) PTSD (post-traumatic stress disorder) Code(s): F43.10 - Post-traumatic stress disorder, unspecified Status: Chronic (2) Schizoaffective disorder, bipolar type Code(s): F25.0 - Schizoaffective disorder, bipolar type Status: Acute - Plan Plan: Patient will be reevaluated by the attending psychiatrist. Continue with current treatment plan. Justification for Continued Inpatient Stay: Moving this patient to a less restrictive environment would likely result in decompensation.
[2018-05-11] MEDS: Temazepam 15 MG Capsule PO PRN (01:48)
[2018-05-11] MEDS: Carvedilol 12.5 MG Tablet PO SCH ×2 (09:12→20:34)
[2018-05-11] MEDS: glipiZIDE 10 MG Tablet PO SCH ×2 (09:12→20:35)
[2018-05-11] MEDS: Insulin NovoLOG Aspart Correctional Sugar Inj SQ SCH ×4 (09:12→21:57)
[2018-05-11] MEDS: ARIPiprazole 10 MG Tablet PO SCH (09:12)
[2018-05-11] MEDS: Haloperidol 5 MG Tablet PO SCH ×2 (09:12→21:31)
[2018-05-11] MEDS: Senna/Docusate Sodium 8.6/50 MG Tablet PO SCH ×2 (09:13→20:35)
--- NOTE | 2018-05-11 13:07 | P.PNPSY ---
Subjective Chief Complaint: "I will be the one to kill Lucifer" Remarks: Reviewed electronic medical record and discussed with nursing staff. Rounded with RAKESH Perez. Patient in common area eating lunch. He states " I am just making, I hope I don't ." Nursing reports no behavioral concerns. He is eating and sleeping well. He continues to have swelling to his legs bilateral and encouraged to keep his legs elevated. He denies SI/HI. Review of Systems All other systems reviewed negative except as stated in HPI Mental Status Examination Appearance: Appropriate Consciousness: Alert Orientation: x4 Motor Activity: Normal gait Speech: Unremarkable Language: Adequate Fund of Knowledge: Adequate Attention and Concentration: Easily distracted Memory: Unremarkable Mood: Good, Anxious Affect: Appropriate Thought Process & Associations: Intact, Goal directed, Loose associations ( Improving) Thought Content: Preoccupations (Hyperreligious but improving), Delusional ( Grandiose) Hallucination Type: None Delusion Type: Paranoid (And grandiose) Suicidal Ideation: No Suicidal Plan: No Suicidal Intention: No Homicidal Ideation: No Homicidal Plan: No Homicidal Intention: No Insight: Poor Judgment: Impulsive Assessment and Plan - Assessment (1) PTSD (post-traumatic stress disorder) Code(s): F43.10 - Post-traumatic stress disorder, unspecified Status: Chronic (2) Schizoaffective disorder, bipolar type Code(s): F25.0 - Schizoaffective disorder, bipolar type Status: Acute - Plan Plan: Patient will be reevaluated by the attending psychiatrist. Continue with current treatment plan. Justification for Continued Inpatient Stay: Moving patient to a less restrictive environment may result in his decompensation.
[2018-05-12] MEDS: Temazepam 15 MG Capsule PO PRN (00:06)
[2018-05-12] MEDS: Insulin NovoLOG Aspart Correctional Sugar Inj SQ SCH ×5 (07:43→21:10)
[2018-05-12] MEDS: Senna/Docusate Sodium 8.6/50 MG Tablet PO SCH ×2 (08:57→21:02)
[2018-05-12] MEDS: glipiZIDE 10 MG Tablet PO SCH ×2 (08:57→21:01)
[2018-05-12] MEDS: Carvedilol 12.5 MG Tablet PO SCH ×2 (08:58→21:01)
[2018-05-12] MEDS: Haloperidol 5 MG Tablet PO SCH ×2 (08:59→21:02)
[2018-05-12] MEDS: ARIPiprazole 10 MG Tablet PO SCH (08:59)
[2018-05-12 09:38] LABS: Baso # (Auto) 0.1 th/mm3 (0.0-0.2); Eos # (Auto) 0.3 th/mm3 (0.0-0.4); Eos % (Auto) 5.9 % (0.0-4.0); Hematocrit 36.6 % (39.0-51.0); Lymph # (Auto) 1.2 th/mm3 (1.0-4.8); Lymph % (Auto) 21.8 % (9.0-44.0); Mean Corpuscular HGB Conc 32.8 % (32.0-36.0); Mean Corpuscular Hemoglobin 28.5 pg (27.0-34.0); Mean Corpuscular Volume 86.9 fL (80.0-100.0); Mean Platelet Volume 7.8 fL (7.0-11.0); Mono # (Auto) 0.4 th/mm3 (0.0-0.9); Mono % (Auto) 7.5 % (0.0-8.0); Neut # (Auto) 3.5 th/mm3 (1.8-7.7); Neut % (Auto) 63.8 % (16.0-70.0); Platelet Count 320 th/mm3 (150-450); Red Blood Count 4.22 mil/mm3 (4.50-5.90); Red Cell Distribution Width 14.8 % (11.6-17.2); White Blood Count 5.5 th/mm3 (4.0-11.0)
[2018-05-12 10:10] LABS: Calcium 9.4 mg/dL (8.5-10.1); Carbon Dioxide 28.5 meq/L (21.0-32.0); Potassium 4.5 meq/L (3.5-5.1)
--- NOTE | 2018-05-12 13:09 | P.PNIM ---
Subjective Interval history: Follow-up visit diabetes with hyperglycemia, skin tear right lower extremity Patient is sitting on the side of his bed. He reports improvement of his bilateral lower extremity itching. He states he has been applying lotion to the dry skin area. Skin tear to RLE looks improved. Denies fevers or chills. Blood sugars remain elevated and medications have been adjusted, this was discussed with patient. Physical Exam Vital signs: Vital Signs 05/11/18 15:58 05/12/18 06:00 Temperature 98.7 F 98.1 F Pulse Rate 75 85 Respiratory Rate 16 17 Blood Pressure 155/69 H 176/79 H Pulse Oximetry 95 98 Intake & Output 05/11/18 05/12/18 05/12/18 18:59 06:59 18:59 Weight 100.8 kg Other: Date of Last Bowel Movement 05/10/18 Narrative: GENERAL: Well-nourished, well-developed elderly male patient in [facility]. Resting in recliner chair. SKIN: Warm and dry. No rash. HEENT: Normocephalic. Atraumatic. Pupils equal and round. Mucous membranes pink and moist. CARDIOVASCULAR: Did not auscultate. RESPIRATORY: No accessory muscle use. Did not auscultate today. GASTROINTESTINAL: Abdomen soft, non-tender, nondistended. MUSCULOSKELETAL: No obvious deformities. Right lower extremity with skin tear, left lower extremity abrasion and dry skin. Right upper extremity short arm ulnar gutter splint. NEUROLOGICAL: Awake and alert. No obvious cranial nerve deficits. Motor grossly within normal limits. Moving all extremities spontaneously. Normal speech. PSYCHIATRIC: Tangential speech, difficult to redirect with conversation Results Labs CBC & Chem 7: 05/12/18 09:04 05/12/18 09:04 Assessment and Plan (1) PTSD (post-traumatic stress disorder): Code(s): F43.10 - Post-traumatic stress disorder, unspecified Status: Chronic (2) Schizoaffective disorder, bipolar type: Code(s): F25.0 - Schizoaffective disorder, bipolar type Status: Acute Plan 68-year-old male history of HTN, DM, CKD, schizophrenia, admitted to inpatient psychiatry. Hospitalist consulted for medical management of hypoglycemia. Psychosis/Schizophrenia: acute -continue management per psychiatry Diabetes mellitus: Initially with hypoglycemia, now hyperglycemia. Patient likely initially hypoglycemic due to fasting while acutely psychotic. -blood sugars fluctuate in the 200-300's -continue glipizide, continue his long-acting insulin NPH 50u in am and increase PM insulin to 25u (restarted 05/07/18) -Accu-Cheks and SSI (SSI increased to medium coverage) -Unable to start metformin secondary to renal function Right lower extremity skin tear/cellulitis: patient states this occurred secondary to being cuffed prior to arrival -cleanse daily, apply antibiotic cream -itching to bilateral lower extremity, patient scratches frequently per RN. Benadryl cream as needed. -Doxycycline x 7 days Hypertension: chronic and normotensive -continue patient's Coreg and nifedipine with hold parameters -hold patient's lisinopril due to renal function -Hydralazine PO PRN with parameters -Monitor BP, adjust antihypertensives as needed Acute kidney injury superimposed on CKD, stage III: -serum Cr improved -avoid nephrotoxins -holding patient's lisinopril -renal US no sonographic evidence for obstructive uropathy, 5.5 cm simple appearing cyst in the superior pole of left kidney Right Hand Fracture: hand x-ray 05/05 showed right metadiaphyseal fifth metacarpal fracture that is minimally to nondisplaced -ortho consulted, rec conservative treatment -short term ulnar gutter splint -non weight bearing RUE -f/u with Ortho in 2 weeks outpatient DVT Prophylaxis: patient is ambulatory Discharge Planning: Will continue to monitor blood glucose and adjust insulin as needed. Continue to monitor renal function closely. Monitor bilateral lower extremity redness for worsening vs improvement of skin tear & cellulitis. Code Status: Full Discussed Condition With: Supervising MD, patient, forestry faculty member Planning: per primary team Progress Note: Quality VTE Deep Vein Thrombosis/Pulmonary Embolism Present on Admission: No
--- NOTE | 2018-05-12 13:26 | P.PNPSY ---
Subjective Chief Complaint: Follow-up treatment of manic mood with psychosis. Remarks: Patient seen for follow-up, chart reviewed, patient discussed with nursing staff ; we reviewed the patient's mood, thoughts, and behaviors from overnight and this morning. Nurse reports that the patient continues to struggle to fall asleep but given the Restoril as needed the patient did sleep through the remainder of the night. Nursing describes him as calm cooperative but worried about the health of his kidneys. Patient was seen during recreational therapy to be engaged appropriately with another peer plan checkers. Patient reports feeling safe on the unit but would like to be discharged this week. He continues to report a plan of staying in a hotel. He was asked about executive assistant to general counsel options with the [facility] but he declines a referral because he believes it will limit his opportunities to have roommates. The patient expressed belief that he is going to be dating a woman he met during this inpatient stay and he does not want to have any limits on his housing. Patient was asked to clarify this relationship and he reports that he knows that this woman wants to him because she left behind art work she had done in art class and he expressed the assumption that she had left it for him. The patient is on a different unit and he has not seen her since she left the art work behind so there is no way for him to confirm that they will be moving in together at discharge. Patient denies any auditory or visual hallucinations. He denies any homicidal or suicidal ideations. He continues to agree with plan of transitioning to a long-acting injectable treatment and following up with his [facility] outpatient clinic. Mental Status Examination Appearance: Appropriate Consciousness: Alert Orientation: x4 Motor Activity: Normal gait Speech: Unremarkable Language: Adequate Fund of Knowledge: Adequate Attention and Concentration: Easily distracted Memory: Unremarkable Mood: Good, Anxious Affect: Appropriate Thought Process & Associations: Intact, Goal directed, Loose associations ( Improving), Other (Illogical) Thought Content: Delusional (Grandiose, as in a female patient wanting to him) Hallucination Type: None Delusion Type: Other (Grandiose) Suicidal Ideation: No Suicidal Plan: No Suicidal Intention: No Homicidal Ideation: No Homicidal Plan: No Homicidal Intention: No Insight: Poor Judgment: Impulsive Assessment and Plan - Assessment (1) Schizoaffective disorder, bipolar type Code(s): F25.0 - Schizoaffective disorder, bipolar type Status: Acute (2) PTSD (post-traumatic stress disorder) Code(s): F43.10 - Post-traumatic stress disorder, unspecified Status: Chronic - Plan Plan: May 12, 2018: Fair response to treatment; the patient is not as hyperactive or hyperverbal and no longer hyperreligious. He is denying homicidal or suicidal ideations. He continues to have some mild loose associations delusions about women being enamored by him but he has overall been cooperative with care in the hospital. He will require a close follow-up by his outpatient providers as well as primary support to ensure continued fdc and access to care. Continue inpatient psychiatric treatment and stabilization. Continue current medications unchanged as the patient is progressing satisfactory. Anticipate changing the Haldol to the long-acting injectable form at discharge. The patient is followed by the [place] [facility] and will need to discharge follow-up assessment on the day of discharge and will likely need assistance with fdc as he is not allowed to return to his mother's home. The [facility] outpatient clinic will be open tomorrow and the treatment team will make every effort to connect the patient with his outpatient providers as early as tomorrow or Saturday. Justification for Continued Inpatient Stay: Patient remains an elevated risk for self-harm by self neglect and he has experienced exacerbations of psychosis with homicidal ideations with previous nonadherence to treatment and will require further inpatient stabilization and preparation of a safe discharge plan. Moving patient to a less restrictive environment at this time may result in decompensation.
[2018-05-13] MEDS: Temazepam 15 MG Capsule PO PRN ×2 (00:04→20:49)
[2018-05-13] MEDS: Insulin NovoLOG Aspart Correctional Sugar Inj SQ SCH ×4 (07:19→20:51)
[2018-05-13] MEDS: Senna/Docusate Sodium 8.6/50 MG Tablet PO SCH ×2 (08:19→20:50)
[2018-05-13] MEDS: ARIPiprazole 10 MG Tablet PO SCH (08:19)
[2018-05-13] MEDS: Carvedilol 12.5 MG Tablet PO SCH ×2 (08:19→20:50)
[2018-05-13] MEDS: glipiZIDE 10 MG Tablet PO SCH ×2 (08:19→20:49)
[2018-05-13] MEDS: Haloperidol 5 MG Tablet PO SCH ×2 (08:19→20:50)
--- NOTE | 2018-05-13 08:44 | P.TTN ---
- Patient Problems Problems: 1. Discharge planning 2. Medication compliance 3. Knowledge deficit 4. Lack of coping skills - Progress Toward Goals Provider Present: Other Provider Input: 05/13/18 Per provider pt is getting better on medication looking to possible d/c for trae. Nurse Input: 05/13/18 Per RN pt has been compliant with medication. Yesterday pt was making delusional statements. Psychiatric Counselors Present: Other Psychiatric Therapist Input: 05/13/18 - Upon pt's discharge pt cannot return to mothers home per mothers statement. [facility] be [facility] through [facility] and if not pt std he will go to a motel. Group Spec/RT/OT/CALDERÓN Present: KAITLYNN Ramírez Group Spec/RT/OT/CALDERÓN Input: 05/13/18 Pt has been attending some groups and been less sexually preocupied during groups. - Documentation Teaching Recipient: Patient
--- NOTE | 2018-05-13 12:21 | P.PNPSY ---
Subjective Chief Complaint: Follow-up treatment of manic mood with psychosis. Remarks: Patient seen for follow-up, chart reviewed, patient discussed with nursing staff ; we reviewed the patient's mood, thoughts, and behaviors from overnight and this morning. Nursing reports that patient slept 8 hours overnight and has been calm and cooperative with care. 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 Patient was observed to be interacting appropriately to leave with his peers during recreational therapy. He reports feeling very well and he believes he is safe for discharge and plans to stay in a hotel until he can find an apartment near the [facility]. He was asked about his plans for buying the vehicle and he insists that he has plenty of money to do so but agrees that it be best for him to wait until he has a stable living environment before making any big purchases. We discussed discharge planning and he acknowledges that he would benefit from waiting 1 more day before discharge so that we can make solid arrangements for his [facility]. Mental Status Examination Appearance: Appropriate Consciousness: Alert Orientation: x4 Motor Activity: Normal gait Speech: Unremarkable Language: Adequate Fund of Knowledge: Adequate Attention and Concentration: Easily distracted Memory: Unremarkable Mood: Good, Anxious Affect: Appropriate Thought Process & Associations: Intact, Goal directed, Loose associations ( Improving), Other (Illogical) Thought Content: Delusional (Grandiose,) Hallucination Type: None Delusion Type: Other (Grandiose) Suicidal Ideation: No Suicidal Plan: No Suicidal Intention: No Homicidal Ideation: No Homicidal Plan: No Homicidal Intention: No Insight: Poor Judgment: Impulsive Assessment and Plan - Assessment (1) Schizoaffective disorder, bipolar type Code(s): F25.0 - Schizoaffective disorder, bipolar type Status: Acute (2) PTSD (post-traumatic stress disorder) Code(s): F43.10 - Post-traumatic stress disorder, unspecified Status: Chronic - Plan Plan: May 12, 2018: Fair response to treatment; the patient is not as hyperactive or hyperverbal and no longer hyperreligious. He is denying homicidal or suicidal ideations. He continues to have some mild loose associations delusions about women being enamored by him but he has overall been cooperative with care in the hospital. He will require a close follow-up by his outpatient providers as well as primary support to ensure continued custodial and access to care. Continue inpatient psychiatric treatment and stabilization. Continue current medications unchanged as the patient is progressing satisfactory. Anticipate changing the Haldol to the long-acting injectable form at discharge. The patient is followed by the [place] [facility] and will need to discharge follow-up assessment on the day of discharge and will likely need assistance with custodial as he is not allowed to return to his mother's home. The [place] outpatient clinic will be open tomorrow and the treatment team will make every effort to connect the patient with his outpatient providers as early as tomorrow or Saturday. May 13, 2018: Fair response to treatment; the patient is sleeping through the night and is generally calm and cooperative with care and not nearly as intrusive as he was on admission. His continued grandiose statements are concerning but overall he seems organized enough to do his ADLs independently and is sincerely motivated to follow-up with case management through the [place]. Continue inpatient psychiatric treatment and stabilization with anticipated discharge tomorrow. Continue current medications with his oral Haldol being converted to a Haldol decanoate shot 100 mg IM every 28 days starting tomorrow. Discharge planning: Patient will follow up with the [place] [facility]. Justification for Continued Inpatient Stay: Patient remains an elevated risk for self-harm by self neglect and nonadherence to medications resulting with a worsening psychosis and a return of homicidal and suicidal ideations and therefore he will require further inpatient stabilization and preparation of a safe discharge plan. Moving patient to a less restrictive environment at this time may result in decompensation.
--- NOTE | 2018-05-13 14:53 | P.PNIM ---
Subjective Interval history: Follow-up visit for diabetes mellitus and lower extremity skin tear. Nurse reports improvement in blood sugars, erythema to bilateral lower extremity abrasions noted. Patient is seen and examined sitting up in day room and appears to be in no acute distress eating peanut butter and crackers this afternoon. Discussed improvement in blood sugars with insulin adjustments. Patient reports his legs are improving, some sensitivity to right lower extremity. Denies any fevers, chills, nausea, vomiting, diarrhea, dizziness or lightheadedness. He voices no acute concerns at the moment. Physical Exam Vital signs: Vital Signs 05/12/18 15:30 05/13/18 06:00 Temperature 98.7 F 97.8 F Pulse Rate 67 73 Respiratory Rate 18 16 Blood Pressure 161/74 H 151/70 H Pulse Oximetry 96 98 Intake & Output 05/12/18 05/13/18 05/13/18 18:59 06:59 18:59 Other: Date of Last Bowel Movement 05/13/18 Narrative: GENERAL: Well-nourished, well-developed elderly male patient in [facility]. SKIN: Warm and dry. RLE abrasion which appears healing, moist area seen on medial lower portion along with surrounding erythema, no warmth. LLE smaller abrasion also healing with no open areas and surrounding mild erythema, no warmth. HEENT: Normocephalic. Atraumatic. Pupils equal and round. Mucous membranes pink and moist. CARDIOVASCULAR: RRR. RESPIRATORY: Clear, no wheezing or rhonchi GASTROINTESTINAL: Abdomen soft, non-tender, nondistended. MUSCULOSKELETAL: No obvious deformities. NEUROLOGICAL: Awake and alert. No obvious cranial nerve deficits. Motor grossly within normal limits. Moving all extremities spontaneously. Normal speech. PSYCHIATRIC: Tangential speech, cooperative and calm. Results Labs CBC & Chem 7: 05/12/18 09:04 05/12/18 09:04 Assessment and Plan (1) PTSD (post-traumatic stress disorder): Code(s): F43.10 - Post-traumatic stress disorder, unspecified Status: Chronic (2) Schizoaffective disorder, bipolar type: Code(s): F25.0 - Schizoaffective disorder, bipolar type Status: Acute Plan 68-year-old male history of HTN, DM, CKD, schizophrenia, admitted to inpatient psychiatry. Hospitalist consulted for medical management of hypoglycemia. Psychosis/Schizophrenia: acute -continue management per psychiatry Diabetes mellitus: Initially with hypoglycemia, now hyperglycemia. Patient likely initially hypoglycemic due to fasting while acutely psychotic. -continue glipizide, continue his long-acting insulin NPH 50u in am and 25u HS (restarted 05/07/18) -Accu-Cheks and SSI -Hold off on starting metformin secondary to renal function Right lower extremity skin tear/cellulitis: patient states this occurred secondary to being cuffed prior to arrival -cleanse daily, apply antibiotic cream -itching to bilateral lower extremity, patient scratches frequently per RN. Benadryl cream as needed. - ? if increase erythema, markings by nurse made to day, continue to monitor closely -Continue Doxycycline x 7 days - CBC in the a.m. Hypertension: chronic and normotensive -continue patient's Coreg and nifedipine with hold parameters -hold patient's lisinopril due to renal function -Hydralazine PO PRN with parameters -Monitor BP, adjust antihypertensives as needed Acute kidney injury superimposed on CKD, stage III: -serum Cr improved -avoid nephrotoxins -holding patient's lisinopril -renal US no sonographic evidence for obstructive uropathy, 5.5 cm simple appearing cyst in the superior pole of left kidney Right Hand Fracture: hand x-ray 05/05 showed right metadiaphyseal fifth metacarpal fracture that is minimally to nondisplaced -ortho consulted, rec conservative treatment -short term ulnar gutter splint -non weight bearing RUE -f/u with Ortho in 2 weeks outpatient DVT Prophylaxis: patient is ambulatory Code Status: Full code Discussed Condition With: Patient, nurse and Progress Note: Quality VTE Deep Vein Thrombosis/Pulmonary Embolism Present on Admission: No
[2018-05-13 18:14] VITALS: RESP 18
[2018-05-14 05:56] VITALS: BP 144/67; PULSE 73; TEMP 98; O2SAT 95
[2018-05-14] MEDS: Insulin NovoLOG Aspart Correctional Sugar Inj SQ SCH ×2 (07:26→11:49)
[2018-05-14] MEDS ORDERED: Haloperidol Decanoate Inj 50 MG/ML Ampul IM SCH (08:00)
[2018-05-14] MEDS: Carvedilol 12.5 MG Tablet PO SCH (08:02)
[2018-05-14] MEDS: Senna/Docusate Sodium 8.6/50 MG Tablet PO SCH (08:02)
[2018-05-14] MEDS: glipiZIDE 10 MG Tablet PO SCH (08:02)
[2018-05-14] MEDS: ARIPiprazole 10 MG Tablet PO SCH (08:03)
--- NOTE | 2018-05-14 10:06 | P.PNIM ---
Subjective Interval history: Follow-up for DM and lower extremity cellulitis. Nurse reports improvement in leg erythema and BS have been stable, patient to be DC today. Patient is seen and examined in the day room. He denies any fevers, chills, N/V/D or leg pain. Improvement in erythema to lower extremities L>R. Discussed new insulin dosing with patient along with prescription for Doxycycline and care for lower extremities, verbalized understanding. Physical Exam Vital signs: Vital Signs 05/13/18 18:13 05/14/18 05:55 Temperature 98.1 F 98.0 F Pulse Rate 75 73 Respiratory Rate 18 18 Blood Pressure 162/72 H 144/67 H Pulse Oximetry 98 95 Intake & Output 05/13/18 05/14/18 05/14/18 18:59 06:59 18:59 Other: Date of Last Bowel Movement 05/13/18 05/13/18 05/14/18 Narrative: GENERAL: Well-nourished, well-developed elderly male patient in [facility]. SKIN: Warm and dry. RLE abrasion which appears healing, surrounding erythema with noted improvement, no warmth. LLE smaller abrasion also healing with no open areas and surrounding minimal erythema, no warmth. MUSCULOSKELETAL: No obvious deformities. NEUROLOGICAL: Awake and alert. No obvious cranial nerve deficits. Motor grossly within normal limits. Moving all extremities spontaneously. Normal speech. PSYCHIATRIC: Tangential speech, cooperative and calm. Results Labs CBC & Chem 7: 05/14/18 09:35 05/12/18 09:04 Assessment and Plan (1) PTSD (post-traumatic stress disorder): Code(s): F43.10 - Post-traumatic stress disorder, unspecified Status: Chronic (2) Schizoaffective disorder, bipolar type: Code(s): F25.0 - Schizoaffective disorder, bipolar type Status: Acute Plan 68-year-old male history of HTN, DM, CKD, schizophrenia, admitted to inpatient psychiatry. Hospitalist consulted for medical management of hypoglycemia. Psychosis/Schizophrenia: acute -continue management per psychiatry Diabetes mellitus: Initially with hypoglycemia, now hyperglycemia. Patient likely initially hypoglycemic due to fasting while acutely psychotic. -continue glipizide, continue his long-acting insulin NPH 50u in am and 25u HS (restarted 05/07/18) -Accu-Cheks and SSI -Hold off on starting metformin secondary to renal function -New prescription for HS NPH dose printed for patient, discussed changes in his medication regimen. Right lower extremity skin tear/cellulitis: patient states this occurred secondary to being cuffed prior to arrival -cleanse daily, apply antibiotic cream -itching to bilateral lower extremity, patient scratches frequently per RN. Benadryl cream as needed. -Markings around cellulitis done yesterday, noted improvement to erythema today. -Prescription for doxycycline printed, patient to complete 10-day course. -Discussed ongoing care and signs and symptoms of worsening infection with patient. Hypertension: chronic and normotensive -continue patient's Coreg and nifedipine with hold parameters -hold patient's lisinopril due to renal function -Hydralazine PO PRN with parameters -Monitor BP, adjust antihypertensives as needed Acute kidney injury superimposed on CKD, stage III: -serum Cr improved -avoid nephrotoxins -holding patient's lisinopril -renal US no sonographic evidence for obstructive uropathy, 5.5 cm simple appearing cyst in the superior pole of left kidney Right Hand Fracture: hand x-ray 05/05 showed right metadiaphyseal fifth metacarpal fracture that is minimally to nondisplaced -ortho consulted, rec conservative treatment -short term ulnar gutter splint -non weight bearing RUE -f/u with Ortho in 2 weeks outpatient DVT Prophylaxis: patient is ambulatory Recent medically cleared for discharge, prescription provided to patient and discussed with both patient and nursing staff. Progress Note: Quality VTE Deep Vein Thrombosis/Pulmonary Embolism Present on Admission: No
[2018-05-14 10:12] LABS: Baso # (Auto) 0.1 th/mm3 (0.0-0.2); Baso % (Auto) 1.2 % (0.0-2.0); Eos # (Auto) 0.4 th/mm3 (0.0-0.4); Eos % (Auto) 6.4 % (0.0-4.0); Hematocrit 37.5 % (39.0-51.0); Hemoglobin 12.3 gm/dL (13.0-17.0); Lymph # (Auto) 1.4 th/mm3 (1.0-4.8); Lymph % (Auto) 23.1 % (9.0-44.0); Mean Corpuscular HGB Conc 32.8 % (32.0-36.0); Mean Corpuscular Hemoglobin 28.6 pg (27.0-34.0); Mean Corpuscular Volume 87.3 fL (80.0-100.0); Mean Platelet Volume 7.6 fL (7.0-11.0); Mono # (Auto) 0.4 th/mm3 (0.0-0.9); Mono % (Auto) 6.7 % (0.0-8.0); Neut # (Auto) 3.8 th/mm3 (1.8-7.7); Neut % (Auto) 62.6 % (16.0-70.0); Platelet Count 348 th/mm3 (150-450); Red Cell Distribution Width 14.8 % (11.6-17.2)
--- NOTE | 2018-05-14 10:45 | P.DSPSY ---
Psychiatry Discharge Summary Inpatient Psychiatric care?: Yes Advance Directives: Unknown Reason for Unknown:: Due to Patient Condition Mental Health Advance Directive: No Health Care Proxy: No - Admission Admission Date: May 02, 2018 15:42 - Admission Diagnosis (1) PTSD (post-traumatic stress disorder) Code(s): F43.10 - Post-traumatic stress disorder, unspecified (2) Schizoaffective disorder, bipolar type Code(s): F25.0 - Schizoaffective disorder, bipolar type Brief History: The patient is a 68-year-old [place] man, domiciled in [place], single, supported by Social Security, with a psychiatric history of schizophrenia, PTSD , multiple psychiatric hospitalizations, he denies previous suicidal attempts, he denies been taking psychotropics, history of violence, incarcerations, sex offender, medical history diabetes, hypertension, who presents the emergency department under Uribe act. According to the Uribe act report the patient is psychotic delusional agitated and is not taking his medications. He is hypertensive and diabetic as well and this noncompliance poses a danger to himself. Patient verbalized he will kill his psychiatrist because she lied to him. On my psychiatric evaluation today the patient presents quite agitated, verbally hostile, refusing to cooperate. Patient does not engage in a conversation, continues to be threatening verbally. Patient is claiming that he is "Catarino King." When asked him if he is suicidal or homicidal he states "Catarino King is not kill anyone." He denies having any suicidal thoughts. He also states that "Catarino King does not hallucinate" when asked if he is having any auditory or visual hallucinations. The patient is start making accusation towards the staff, telling me that "you are Sourav Ugarte and you know exactly why I am here MF!!". The patient has some point become physically aggressive, he had to be manually restrained, medicated with Haldol 5 mg and Ativan 2 mg. He is secluded in the J pod, about 25 minutes later the patient continues to be coursing the staff, voicing profanities, threatening the staff and other patients and we had remedicated him Thorazine 100 mg IM to help him to calm down. PPHx: with a psychiatric history of schizophrenia, PTSD, multiple psychiatric hospitalizations, he denies previous suicidal attempts, he denies been taking psychotropics, history of violence, incarcerations, sex offender PMHx: Hypertension, diabetes Substance Hx: He denies the use of illegal drugs or alcohol Family Hx: No family psychiatric Social Hx: 68-year-old [place] man, born and raised in [place], he lives with his mother in [place], single, supported by Social Security, history of incarceration for sexual offense. Tobacco Use In Past 30 Days: Yes (2PPD) How Often Do You Have a Drink Containing Alcohol: 4 or more times a week Hospital Course: Hospital course: Patient was admitted to a locked, inpatient psychiatric unit. Appropriate precautions were in place throughout patient's hospital stay. Patient was seen and examined on the unit by psychiatry and also visited by counselor. Psychotropic medications were adjusted as clinically indicated and remained well tolerated. He was initially restarted on his previous outpatient psychotropic medication regimen which included Abilify 10 mg/day and Haldol 5 mg twice a day. The patient's sleep remained inadequate as he was only getting 2-3 hours per night and then causing disturbances on the unit therefore on hospital day #3 he was started on Restoril 30 mg at bedtime as needed and had a good response. The patient continued to demonstrate delusional thinking and manic behavior therefore Haldol was increased to 10 mg twice a day on hospital day #7. The patient's condition steadily improved and there was a good response to inpatient treatment plan noted by nursing and provider observations ; the patient reported improvements in mood, anxiety, and there was no evidence of any hallucinations, delusions, suicidality or homicidality at time of discharge. Psychiatric follow-up as arranged by counselor. Patient is also to follow up with primary care. I have counseled the patient to abstain from substances of abuse including cannabis and have counseled patient to return to the psychiatric emergency room for any concerning symptoms as part of a general safety plan. Discharge medications included prescriptions for Abilify 10 mg take 1 tablet by mouth once a day #7 refill 0, Restoril 30 mg take 1 capsule at bedtime as needed for insomnia #7 refill 0, and the patient is to continue Haldol 100 mg decanoate shot every 28 days with his next dose being due on June 11, 2018. The patient was also followed closely by the general medical hospitalist and the following treatment recommendations were made: Diabetes mellitus: Initially with hypoglycemia, now hyperglycemia. Patient likely initially hypoglycemic due to fasting while acutely psychotic. -continue glipizide, continue his long-acting insulin NPH 50u in am and 25u HS (restarted 05/07/18) -Accu-Cheks and SSI -Hold off on starting metformin secondary to renal function Right lower extremity skin tear/cellulitis: patient states this occurred secondary to being cuffed prior to arrival -cleanse daily, apply antibiotic cream -itching to bilateral lower extremity, patient scratches frequently per RN. Benadryl cream as needed. - ? if increase erythema, markings by nurse made to day, continue to monitor closely -Continue Doxycycline x 7 days - CBC in the a.m. Hypertension: chronic and normotensive -continue patient's Coreg and nifedipine with hold parameters -hold patient's lisinopril due to renal function -Hydralazine PO PRN with parameters -Monitor BP, adjust antihypertensives as needed Acute kidney injury superimposed on CKD, stage III: -serum Cr improved -avoid nephrotoxins -holding patient's lisinopril -renal US no sonographic evidence for obstructive uropathy, 5.5 cm simple appearing cyst in the superior pole of left kidney Right Hand Fracture: hand x-ray 05/05 showed right metadiaphyseal fifth metacarpal fracture that is minimally to nondisplaced -ortho consulted, rec conservative treatment -short term ulnar gutter splint -non weight bearing RUE -f/u with Ortho in 2 weeks outpatient - Discharge Discharge Date: 05/14/18 - Discharge Diagnosis (1) Schizoaffective disorder, bipolar type Code(s): F25.0 - Schizoaffective disorder, bipolar type Status: Acute (2) PTSD (post-traumatic stress disorder) Code(s): F43.10 - Post-traumatic stress disorder, unspecified Status: Chronic Discharge Disposition: Home - Discharge Time > 30 minutes Mental Status Examination Appearance: Appropriate Consciousness: Alert Orientation: x4 Motor Activity: Normal gait Speech: Unremarkable Language: Adequate Fund of Knowledge: Adequate Attention and Concentration: Easily distracted Memory: Unremarkable Mood: Good, Anxious Affect: Appropriate Thought Process & Associations: Intact, Logical, Goal directed Thought Content: Delusional (Grandiose, mild) Hallucination Type: None Suicidal Ideation: No Homicidal Ideation: No (The patient's homicidal ideations towards his mental health providers on admission resolved quickly and have not returned.) Insight: Poor Judgment: Impulsive Discharge/Advance Care Plan - Results Vital Signs: Last Vital Signs Temp 98.0 F 05/14/18 05:55 Pulse 73 05/14/18 05:55 Resp 18 05/14/18 05:55 BP 144/67 H 05/14/18 05:55 Pulse Ox 95 05/14/18 05:55 Lab Results: Abnormal Lab Results 05/13/18 05/13/18 05/14/18 11:28 20:39 07:21 WBC RBC Hgb Hct MCV MCH MCHC RDW Plt Count MPV Neut % (Auto) Lymph % (Auto) [place] % (Auto) Eos % (Auto) Baso % (Auto) Neut # (Auto) Lymph # (Auto) [place] # (Auto) Eos # (Auto) Baso # (Auto) WBC Differential Differential Comment POC Glucose 156 H 237 H 96 05/14/18 09:35 WBC 6.0 RBC 4.30 L Hgb 12.3 L Hct 37.5 L MCV 87.3 MCH 28.6 MCHC 32.8 RDW 14.8 Plt Count 348 MPV 7.6 Neut % (Auto) 62.6 Lymph % (Auto) 23.1 [place] % (Auto) 6.7 Eos % (Auto) 6.4 H Baso % (Auto) 1.2 Neut # (Auto) 3.8 Lymph # (Auto) 1.4 [place] # (Auto) 0.4 Eos # (Auto) 0.4 Baso # (Auto) 0.1 WBC Differential . Differential Comment Auto diff final POC Glucose Laboratory Results Hemoglobin A1c 8.9 % (4.3-6.0) H 05/04/18 10:25 Triglycerides 115 mg/dL (42-150) 05/04/18 10:25 Cholesterol 108 mg/dL (120-200) L 05/04/18 10:25 LDL Cholesterol, Calc 56 mg/dL (0-99) 05/04/18 10:25 HDL Cholesterol 29.0 mg/dL (40.0-60.0) L 05/04/18 10:25 TSH 0.501 uIU/mL (0.358-3.740) 05/02/18 13:53 Summary of Procedures: None to report Imaging: ITS Impressions Hand X-Ray 05/05/18 00:00 CONCLUSION: Nondisplaced fracture of the proximal fifth metacarpal. Abdomen/Bladder Ultrasound 05/08/18 00:00 CONCLUSION: 1. No sonographic evidence for obstructive uropathy. 2. 5.5 cm simple appearing cyst in the superior pole of the left kidney. Pending Results: None - Medications Number of antipsychotic medications at discharge: 2 Appropriate use of more than 1 antipsychotic med: Minimum of three failed multiple trials of monotherapy (Haldol, Seroquel, Zyprexa, Risperdal, Abilify) - Discharge Care Plan Goals to Promote Your Health: * To prevent worsening of your condition and complications * To maintain your health at the optimal level Directions to Meet Your Goals: Take your medications as prescribed Follow your dietary instruction Follow activity as directed Keep your appointments as scheduled Take your immunizations and boosters as scheduled If your symptoms worsen call your PCP, if no PCP go to Urgent Care Center or Emergency Room For 15/10 questions related to your inpatient stay or results of tests pending at discharge, please contact Dr. Berto Mathew MD at Smoking is Dangerous to Your Health. Avoid second hand smoking
== END 2018-05-14 12:55 | disposition home or self-care (01) | DRG 885 ==
LOC: NEPD 13:06 → NEDA 15:42 → H270 18:26
PROVIDERS: ADMIT Psychiatry & Neurology Psychiatry; ATTEND Psychiatry & Neurology Psychiatry
DX: F17.210 Nicotine dependence, cigarettes, uncomplicated; Z91.14 Patient's other noncompliance with medication regimen; N17.9 Acute kidney failure, unspecified; N18.3 Chronic kidney disease, stage 3 (moderate); L03.115 Cellulitis of right lower limb; F25.0 Schizoaffective disorder, bipolar type; S62.306A Unspecified fracture of fifth metacarpal bone, right hand, initial encounter for closed fracture; R60.0 Localized edema; G47.00 Insomnia, unspecified; F43.10 Post-traumatic stress disorder, unspecified; Z88.0 Allergy status to penicillin; E11.65 Type 2 diabetes mellitus with hyperglycemia; S80.811A Abrasion, right lower leg, initial encounter; Z79.82 Long term (current) use of aspirin; I12.9 Hypertensive chronic kidney disease with stage 1 through stage 4 chronic kidney disease, or unspecified chronic kidney disease; E11.649 Type 2 diabetes mellitus with hypoglycemia without coma; E11.22 Type 2 diabetes mellitus with diabetic chronic kidney disease; Z91.19 Patient's noncompliance with other medical treatment and regimen; Z79.899 Other long term (current) drug therapy
CPT/HCPCS: 73120; 76775; 80048; 80053; 80061; 80307; 82948; 82962; 83036; 83735; 84443; 85025; 90772; 90782; 96372; 99285; J1630; J1631; J1815; J2060; L6380